=== PATIENT | male | born 1955 | race Hispanic/Latino ===

== ENCOUNTER 2017-10-18 15:09 | Emergency (ER) | payer MEDICARE ==
--- NOTE | 2017-10-18 18:32 | Emergency Department Report ---
ED General Adult HPI - General Chief complaint: Weakness Stated complaint: NOT EATING Time Seen by Provider: 10/18/17 17:29 Source: EMS Mode of arrival: Stretcher Limitations: Altered Mental Status, Other - History of Present Illness Initial comments: Patient apparently was brought from [facility]. Patient apparently over the last few days has not been eating. Prior to that about 6 days ago the patient was on a 1013 due to no hallucinations, paranoia and depressions. The patient was found at home after he missed doctor's appointment and was noticed to be confused and as such transported to the hospital. The personal aide worker with the patient said that the patient did not have anything to eat this morning. She hasn't seen him verbalize. On reviewing the progress notes the patient was alert and oriented this morning however refused to take his medications and refused to eat. Patient however is not able to verbalize to me and he refuses to talk however he does appear to move all his extremities at his own will -: Gradual Severity scale (0 -10): 0 - Related Data Allergies Allergy/AdvReac Type Severity Reaction Status Date / Time No Known Allergies Allergy Unverified 10/18/17 19:18 ED Review of Systems ROS: Stated complaint: NOT EATING Other details as noted in HPI Comment: Unobtainable due to pts medical conditions ED Past Medical Hx - Past Medical History Hx Hypertension: Yes Hx Diabetes: Yes Hx GERD: Yes Hx Psychiatric Treatment: Yes (history of major depressive disorder) Additional medical history: Psychosis unspecified. - Social History Smoking Status: Unknown if ever smoked ED Physical Exam - General Limitations: Altered Mental Status, Other General appearance: other (eyes closed and refuses to verbalize however moving ALL the extremities.) - Head Head exam: Present: atraumatic, normocephalic - Eye Eye exam: Present: normal appearance - ENT ENT exam: Present: mucous membranes moist - Neck Neck exam: Present: normal inspection - Respiratory Respiratory exam: Present: normal lung sounds bilaterally. Absent: respiratory distress - Cardiovascular Cardiovascular Exam: Present: regular rate, normal rhythm. Absent: systolic murmur, diastolic murmur, rubs, gallop - GI/Abdominal GI/Abdominal exam: Present: soft, normal bowel sounds - Rectal Rectal exam: Present: deferred - Extremities Exam Extremities exam: Present: normal inspection - Back Exam Back exam: Present: normal inspection - Neurological Exam Neurological exam: Absent: alert, oriented X3 - Psychiatric Psychiatric exam: Present: other (nonverbal. MUTED) - Skin Skin exam: Present: dry, other (skin the skin in the feet. WITH AN hyperkeratotic ulcer on the dorsal aspect of the second toe) ED Course Vital Signs 10/18/17 10/18/17 10/18/17 17:45 18:00 19:30 Temperature 97.7 F 98.3 F Pulse Rate 57 L 57 L Respiratory 18 18 Rate Blood Pressure Blood Pressure 115/54 129/73 [Left] O2 Sat by Pulse 96 96 96 Oximetry 10/18/17 10/18/17 10/18/17 20:00 21:00 22:00 Temperature Pulse Rate Respiratory Rate Blood Pressure 115/64 140/98 126/77 Blood Pressure [Left] O2 Sat by Pulse 94 Oximetry ED Medical Decision Making - Lab Data Result diagrams: 10/18/17 18:25 10/18/17 18:25 - Medical Decision Making Patient was later able to talk to me however he was not oriented 3 and appears to be psychotic at this time. i feel the patient's symptomatology is most likely secondary to his mental illness and him being out of his medications. Patient is also drinking and I feel he does things only as needed. From a medical standpoint I don't see where the patient needs to be admitted at this time as such I will be transferring him back to his behavioral facility. Critical care attestation.: If time is entered above; I have spent that time in minutes in the direct care of this critically ill patient, excluding procedure time. ED Disposition Clinical Impression: Dehydration, Psychosis, Leg wound, right, Medical clearance for psychiatric admission Disposition: -01 TO HOME OR SELFCARE Is pt being admited?: No Does the pt Need Aspirin: No Condition: Stable Instructions: Dehydration (ED) Additional Instructions: Increase oral fluid intake. Follow up as an outpatient with [facility] for further care of your feet Referrals: VITA CÁRDENAS MD [Primary Care Provider] - 3-5 Days JOEL HEAD MD [Staff Physician] - 2-3 Days Time of Disposition: 23:18 Print Language: ROMANSH
[2017-10-18 18:48] LABS: Basophils # (Auto) 0.1 K/mm3 (0.0-0.1); Basophils % (Auto) 1.1 % (0.0-1.8); Eosinophils # (Auto) 0.3 K/mm3 (0.0-0.4); Eosinophils % (Auto) 4.2 % (0.0-4.3); Hematocrit 55.5 % (35.5-45.6); Hemoglobin 18.1 gm/dl (11.8-15.2); Lymphocytes # (Auto) 1.9 K/mm3 (1.2-5.4); Lymphocytes % (Auto) 26.4 % (13.4-35.0); Mean Corpuscular HGB Conc 33 % (32-34); Mean Corpuscular Hemoglobin 27 pg (28-32); Mean Corpuscular Volume 84 fl (84-94); Monocytes # (Auto) 0.5 K/mm3 (0.0-0.8); Monocytes % (Auto) 7.2 % (0.0-7.3); Platelet Count 180 K/mm3 (140-440); Red Blood Count 6.61 M/mm3 (3.65-5.03); Red Cell Distribution Width 16.8 % (13.2-15.2)
[2017-10-18 19:19] LABS: Alanine Aminotransferase 29 units/L (7-56); BUN/Creatinine Ratio 26; Blood Urea Nitrogen 21 mg/dL (9-20); Calcium 9.1 mg/dL (8.4-10.2); Hemolysis Index 13
--- NOTE | 2017-10-18 19:57 | Cat Scan Report ---
FINAL REPORT PROCEDURE: CT HEAD/BRAIN WO CON TECHNIQUE: Computerized tomography of the head was performed without contrast material. HISTORY: altered mental status COMPARISON: No prior studies are available for comparison. FINDINGS: Brain: There is no evidence of intracranial hemorrhage. No parenchymal hemorrhage is seen. No mass lesions or mass effect is identified. No abnormal extra-axial fluid collections or masses are seen. Ventricles: The ventricles, sulcal pattern and fissures are prominent consistent with atrophy. Bones: There is a defect visualized in the right parietal bone superior posterior lateral seen on images 59 through image 64 axial image series 3. correlation with prior surgical history recommended. This could represent a surgical defect from previous craniotomy without replacement of the bone flap. I cannot exclude a lytic lesion. There does appear to be some mild calcification of the dura in this location. Paranasal sinuses: Visualized portions appear clear. Mastoid air cells: clear IMPRESSION: No acute intracranial abnormalities are identified. There does appear to be mild atrophy. There is a defect visualized in the right parietal bone superiorly posterior lateral as described above. I am uncertain if this represents a postsurgical defect or lytic defect. Correlation with prior surgical history and trauma history recommended. No other abnormalities are identified.
[2017-10-18 22:50] VITALS: BP 126/77
[2017-10-18 23:05] LABS: Bilirubin,Urine NEG (Negative); Blood,Urine SM (Negative); Color,Urine Yellow (Yellow); Hyaline Casts,Urine 1 /LPF; Mucus,Urine FEW /HPF; Nitrite,Urine NEG (Negative); Protein,Urine <15 mg/dL mg/dL (Negative)
== END 2017-10-19 04:41 | disposition home or self-care (01) ==
LOC: ED 15:09
DX: S81.801A Unspecified open wound, right lower leg, initial encounter (principal); I10 Essential (primary) hypertension; E11.9 Type 2 diabetes mellitus without complications; K21.9 Gastro-esophageal reflux disease without esophagitis; F32.9 Major depressive disorder, single episode, unspecified; X58.XXXA Exposure to other specified factors, initial encounter; Y93.89 Activity, other specified; Y92.89 Other specified places as the place of occurrence of the external cause; Y99.8 Other external cause status
CPT/HCPCS: 36415; 70450; 80053; 81001; 85025; 99285

== ENCOUNTER 2017-10-27 11:05 | Emergency (ER) | payer MEDICARE ==
[2017-10-27 11:24] VITALS: BP 95/59
[2017-10-27 12:22] LABS: Basophils % (Auto) 0.5 % (0.0-1.8); Eosinophils # (Auto) 0.2 K/mm3 (0.0-0.4); Eosinophils % (Auto) 2.1 % (0.0-4.3); Hemoglobin 17.1 gm/dl (11.8-15.2); Lymphocytes % (Auto) 11.9 % (13.4-35.0); Mean Corpuscular HGB Conc 33 % (32-34); Mean Corpuscular Hemoglobin 28 pg (28-32); Mean Corpuscular Volume 83 fl (84-94); Monocytes # (Auto) 0.5 K/mm3 (0.0-0.8); Monocytes % (Auto) 5.7 % (0.0-7.3); Platelet Count 144 K/mm3 (140-440); Red Blood Count 6.23 M/mm3 (3.65-5.03); Red Cell Distribution Width 16.3 % (13.2-15.2)
[2017-10-27 12:44] LABS: BUN/Creatinine Ratio 22; Blood Urea Nitrogen 13 mg/dL (9-20); Hemolysis Index 23
--- NOTE | 2017-10-27 14:29 | Emergency Department Report ---
ED Psych HPI - General Chief Complaint: Psych Stated Complaint: NOT EATING 4+ DAYS Time Seen by Provider: 10/27/17 11:57 Source: EMS, old records reviewed Mode of arrival: Stretcher - History of Present Illness Initial Comments: Patient is a 62-year-old male past medical history of psychosis. History is limited due to patient not being communicative. Patient is from [facility] and has not been eating for the last 4 days. According to mental health worker at this is patient's baseline. Patient has not been taking medications or food at his facility. Further history is unable to obtain due to patient not communicating. - Related Data Allergies Allergy/AdvReac Type Severity Reaction Status Date / Time No Known Allergies Allergy Unverified 10/18/17 19:18 ED Review of Systems ROS: Stated complaint: NOT EATING 4+ DAYS Other details as noted in HPI Comment: Unobtainable due to pts medical conditions (pt not communicating) ED Past Medical Hx - Past Medical History Previous Medical History?: Yes Hx Hypertension: Yes Hx Diabetes: Yes Hx GERD: Yes Hx Psychiatric Treatment: Yes (history of major depressive disorder) Additional medical history: Psychosis unspecified. - Social History Smoking Status: Unknown if ever smoked ED Physical Exam - General Limitations: Altered Mental Status General appearance: alert - Head Head exam: Present: atraumatic, normocephalic - Eye Eye exam: Present: normal appearance - ENT ENT exam: Present: mucous membranes moist - Neck Neck exam: Present: normal inspection - Respiratory Respiratory exam: Present: normal lung sounds bilaterally. Absent: respiratory distress - Cardiovascular Cardiovascular Exam: Present: regular rate, normal rhythm. Absent: systolic murmur, diastolic murmur, rubs, gallop - GI/Abdominal GI/Abdominal exam: Present: soft, normal bowel sounds - Rectal Rectal exam: Present: deferred - Extremities Exam Extremities exam: Present: other (mccoy discoloration no edema or swelling ) - Back Exam Back exam: Present: normal inspection - Neurological Exam Neurological exam: Present: other (psychotic ) - Psychiatric Psychiatric exam: Present: other (psychotic ) - Skin Skin exam: Present: warm, dry, intact, normal color. Absent: rash ED Course Vital Signs 10/27/17 10/27/17 11:21 13:24 Pulse Rate 71 Respiratory 18 16 Rate Blood Pressure 95/59 O2 Sat by Pulse 92 96 Oximetry ED Medical Decision Making - Lab Data Result diagrams: 10/27/17 12:03 10/27/17 12:05 Lab Results 10/27/17 10/27/17 10/27/17 Range/Units 12:03 12:05 12:05 WBC 8.2 (4.5-11.0) K/mm3 RBC 6.23 H (3.65-5.03) M/mm3 Hgb 17.1 H (11.8-15.2) gm/dl Hct 52.0 H (35.5-45.6) % MCV 83 L (84-94) fl MCH 28 (28-32) pg MCHC 33 (32-34) % RDW 16.3 H (13.2-15.2) % Plt Count 144 (140-440) K/mm3 Lymph % (Auto) 11.9 L (13.4-35.0) % [place] % (Auto) 5.7 (0.0-7.3) % Eos % (Auto) 2.1 (0.0-4.3) % Baso % (Auto) 0.5 (0.0-1.8) % Lymph # 1.0 L (1.2-5.4) K/mm3 Hardy # 0.5 (0.0-0.8) K/mm3 Eos # 0.2 (0.0-0.4) K/mm3 Baso # 0.0 (0.0-0.1) K/mm3 Seg Neutrophils % 79.8 H (40.0-70.0) % Seg Neutrophils # 6.6 (1.8-7.7) K/mm3 Sodium (137-145) mmol/L Potassium (3.6-5.0) mmol/L Chloride (98-107) mmol/L Carbon Dioxide (22-30) mmol/L Anion Gap mmol/L BUN (9-20) mg/dL Creatinine (0.8-1.5) mg/dL Estimated GFR ml/min BUN/Creatinine Ratio % Glucose (75-100) mg/dL Calcium (8.4-10.2) mg/dL Salicylates < 0.3 L (2.8-20.0) mg/dL Acetaminophen < 15.0 (10.0-30.0) ug/mL Plasma/Serum Alcohol (0-0.07) % 10/27/17 10/27/17 Range/Units 12:05 12:05 WBC (4.5-11.0) K/mm3 RBC (3.65-5.03) M/mm3 Hgb (11.8-15.2) gm/dl Hct (35.5-45.6) % MCV (84-94) fl MCH (28-32) pg MCHC (32-34) % RDW (13.2-15.2) % Plt Count (140-440) K/mm3 Lymph % (Auto) (13.4-35.0) % Hardy % (Auto) (0.0-7.3) % Eos % (Auto) (0.0-4.3) % Baso % (Auto) (0.0-1.8) % Lymph # (1.2-5.4) K/mm3 Hardy # (0.0-0.8) K/mm3 Eos # (0.0-0.4) K/mm3 Baso # (0.0-0.1) K/mm3 Seg Neutrophils % (40.0-70.0) % Seg Neutrophils # (1.8-7.7) K/mm3 Sodium 140 (137-145) mmol/L Potassium 4.0 (3.6-5.0) mmol/L Chloride 99.2 (98-107) mmol/L Carbon Dioxide 26 (22-30) mmol/L Anion Gap 19 mmol/L BUN 13 (9-20) mg/dL Creatinine 0.6 L (0.8-1.5) mg/dL Estimated GFR > 60 ml/min BUN/Creatinine Ratio 22 % Glucose 121 H (75-100) mg/dL Calcium 9.0 (8.4-10.2) mg/dL Salicylates (2.8-20.0) mg/dL Acetaminophen (10.0-30.0) ug/mL Plasma/Serum Alcohol < 0.01 (0-0.07) % - Medical Decision Making Cdx: Psychosis ddx: dehydration, hypophosphatemia I will get cbc, bmp, psych labs and will have patient be seen by mental health worker for further workup. Pt's lab work is unremarkable Critical care attestation.: If time is entered above; I have spent that time in minutes in the direct care of this critically ill patient, excluding procedure time. ED Disposition Clinical Impression: Psychosis Qualifiers: Psychosis type: schizophrenia Schizophrenia type: unspecified Qualified Code(s) : F20.9 - Schizophrenia, unspecified Disposition: DC/TX-65 PSY HOSP/PSY UNIT Is pt being admited?: No Does the pt Need Aspirin: No Condition: Stable Referrals: PRIMARY CARE, [Primary Care Provider] - 3-5 Days
== END 2017-10-27 18:35 ==
LOC: ED 11:05
DX: F32.9 Major depressive disorder, single episode, unspecified (principal); I10 Essential (primary) hypertension; E11.9 Type 2 diabetes mellitus without complications; K21.9 Gastro-esophageal reflux disease without esophagitis
CPT/HCPCS: 36415; 80048; 85025; 99284; G0480; 80320

== ENCOUNTER 2019-04-14 07:39 | Inpatient (IN) | payer MEDICARE, OTHER ==
[2019-04-14] MEDS ORDERED: NACL 0.9% 1000 ML IV ONE (08:08)
[2019-04-14] MEDS ORDERED: ROCEPHIN/NS 1 GM/50 ML 1 GM/50 ML BAG IV ONE (08:17)
--- NOTE | 2019-04-14 08:24 | Emergency Department Report ---
HPI - General Chief Complaint: Dyspnea/Respdistress Time Seen by Provider: 04/14/19 08:08 - HPI HPI: Room 26 The patient is a 64-year-old male presenting with a chief complaint of cough. The patient was reportedly sent from [facility] altered mental status however.The patient was found in all 4. Patient was found to be hypoxic to 92% on room air and states he is not on the patient states she has had a cough for approximately a week and nonproductive. Patient denies history of fever. In the ED the patient is on supplemental O2 and satting approximately 95% when asked how he is feeling, the patient replies "pretty good." Location: [See above] Duration: [See above] Quality: [See above] Severity: [See above] Modifying factors: [see above] Context: [see above] Mode of transportation: [not driving] ED Past Medical Hx - Past Medical History Previous Medical History?: Yes Hx Hypertension: Yes Hx Heart Attack/AMI: Yes Hx Diabetes: Yes Hx GERD: Yes Hx Kidney Stones: Yes Hx Psychiatric Treatment: Yes (history of major depressive disorder, PTSD, schizoaffective d.o.) Additional medical history: Psychosis unspecified, PVD, anemia - Surgical History Past Surgical History?: Yes Additional Surgical History: Hemorrhoids sx - Family History Family history: no significant - Social History Smoking Status: Never Smoker Substance Use Type: None ED Review of Systems ROS: Stated complaint: AMS Other details as noted in HPI Constitutional: denies: fever Eyes: denies: eye pain ENT: denies: throat pain Respiratory: cough, shortness of breath Cardiovascular: denies: chest pain Endocrine: no symptoms reported Gastrointestinal: denies: abdominal pain Genitourinary: denies: dysuria Musculoskeletal: denies: back pain Neurological: denies: headache Physical Exam - Physical Exam Vital Signs: Vital Signs 04/14/19 04/14/19 04/14/19 07:48 07:55 08:00 Temperature 97.6 F Pulse Rate 78 81 75 Respiratory 10 L 19 Rate Blood Pressure 80/52 84/56 O2 Sat by Pulse 93 92 Oximetry Physical Exam: GENERAL: The patient is well-developed well-nourished male lying on stretcher not appearing to be in acute distress. [] HEENT: Normocephalic. Atraumatic. Extraocular motions are intact. Patient has moist mucous membranes. NECK: Supple. Trachea midline CHEST/LUNGS: Clear to auscultation. There is no respiratory distress noted. HEART/CARDIOVASCULAR: Regular. There is no tachycardia. There is no gallop rub or murmur. ABDOMEN: Abdomen is soft, nontender. Patient has normal bowel sounds. There is no abdominal distention. SKIN: There is no rash. There is no diaphoresis. NEURO: The patient is awake, alert, and oriented. The patient is cooperative. The patient has normal speech MUSCULOSKELETAL: There is no evidence of acute injury. ED Course Vital Signs 04/14/19 04/14/19 04/14/19 07:48 07:55 08:00 Temperature 97.6 F Pulse Rate 78 81 75 Respiratory 10 L 19 Rate Blood Pressure 80/52 84/56 O2 Sat by Pulse 93 92 Oximetry ED Medical Decision Making - Lab Data Result diagrams: 04/14/19 08:07 04/14/19 08:07 Laboratory Tests 04/14/19 04/14/19 04/14/19 08:07 08:07 08:07 WBC 8.0 RBC 3.72 Hgb 10.6 L Hct 32.5 L MCV 87 MCH 29 MCHC 33 RDW 15.9 H Plt Count 350 Lymph % (Auto) 9.4 L [place] % (Auto) 6.3 Eos % (Auto) 0.2 Baso % (Auto) 0.5 Lymph # 0.8 L [place] # 0.5 Eos # 0.0 Baso # 0.0 Seg Neutrophils % 83.6 H Seg Neutrophils # 6.7 Sodium 149 H Potassium 4.4 Chloride 113.8 H Carbon Dioxide 23 Anion Gap 17 BUN 55 H Creatinine 1.8 H Estimated GFR 38 BUN/Creatinine Ratio 31 Glucose 152 H Lactic Acid 1.70 Calcium 9.3 Total Bilirubin 0.20 AST 57 H ALT 33 Alkaline Phosphatase 72 Total Protein 6.6 Albumin 3.4 L Albumin/Globulin Ratio 1.1 Urine Color Urine Turbidity Urine pH Ur Specific [place] Urine Protein Urine Glucose (UA) Urine Ketones Urine Blood Urine Nitrite Urine Bilirubin Urine Urobilinogen Ur Leukocyte Esterase Urine WBC (Auto) Urine RBC (Auto) Uric Acid Crystals 04/14/19 Unknown WBC RBC Hgb Hct MCV MCH MCHC RDW Plt Count Lymph % (Auto) [place] % (Auto) Eos % (Auto) Baso % (Auto) Lymph # [place] # Eos # Baso # Seg Neutrophils % Seg Neutrophils # Sodium Potassium Chloride Carbon Dioxide Anion Gap BUN Creatinine Estimated GFR BUN/Creatinine Ratio Glucose Lactic Acid Calcium Total Bilirubin AST ALT Alkaline Phosphatase Total Protein Albumin Albumin/Globulin Ratio Urine Color Yellow Urine Turbidity Hazy Urine pH 5.0 Ur Specific [place] 1.016 Urine Protein <15 mg/dl Urine Glucose (UA) 50 Urine Ketones Neg Urine Blood Neg Urine Nitrite Neg Urine Bilirubin Neg Urine Urobilinogen < 2.0 Ur Leukocyte Esterase Neg Urine WBC (Auto) 3.0 Urine RBC (Auto) 9.0 Uric Acid Crystals 1+ - Radiology Data Radiology results: report reviewed (chest x-ray), image reviewed (chest x-ray) interpreted by me: Chest [id number] infiltrate, cardiomegaly, possible left pleural effusion [facility] [address] [place] [address] XRay Report Signed Patient: NÉSTOR OROZCO MR#: [id number] : 1955 Acct:[id number] Age/Sex: 64 / M ADM Date: 04/14/19 Loc: ED Attending Dr: Ordering Physician: UNIQUE LATIF MD Date of Service: 04/14/19 Procedure(s): XR chest 1V ap Accession Number(s): [id number] cc: UNIQUE LATIF MD Fluoro Time In Minutes: CHEST 1 VIEW INDICATION: cough, hypotension. COMPARISON: None FINDINGS: SUPPORT DEVICES: None. HEART / MEDIASTINUM: No significant abnormality. LUNGS / PLEURA: Diffuse increased interstitium is present. Volume loss left lung is a concern Possible left pleural effusion.. No pneumothorax. ADDITIONAL FINDINGS: IMPRESSION: 1. Diffuse interstitial pulmonary process with possible volume loss left lung and left pleural effusion Signer Name: Khari Em MD Signed: 04/14/2019 8:44 AM Workstation Name: [id number] Transcribed By: WG Dictated By: Khari Em MD Electronically Authenticated By: Khari Em MD Signed Date/Time: 04/14/19843 DD/ 2 TD/TT: - Differential Diagnosis pneumonia, sepsis, bronchitis Critical care attestation.: If time is entered above; I have spent that time in minutes in the direct care of this critically ill patient, excluding procedure time. ED Disposition Clinical Impression: Pneumonia, Pleural effusion, Hypoxia Disposition: DC-09 OP ADMIT IP TO THIS HOSP Is pt being admited?: Yes Does the pt Need Aspirin: Yes Condition: Fair Instructions: Bacterial Pneumonia (ED) Referrals: LEONILA MICHAEL MD [Primary Care Provider] - 3-5 Days Time of Disposition: 10:02 (hospitalist paged)
[2019-04-14 08:29] LABS: Basophils % (Auto) 0.5 % (0.0-1.8); Eosinophils % (Auto) 0.2 % (0.0-4.3); Hematocrit 32.5 % (35.5-45.6); Hemoglobin 10.6 gm/dl (11.8-15.2); Lymphocytes # (Auto) 0.8 K/mm3 (1.2-5.4); Lymphocytes % (Auto) 9.4 % (13.4-35.0); Mean Corpuscular HGB Conc 33 % (32-34); Mean Corpuscular Volume 87 fl (84-94); Monocytes # (Auto) 0.5 K/mm3 (0.0-0.8); Monocytes % (Auto) 6.3 % (0.0-7.3); Platelet Count 350 K/mm3 (140-440); Red Blood Count 3.72 M/mm3 (3.65-5.03); Red Cell Distribution Width 15.9 % (13.2-15.2)
[2019-04-14 08:49] LABS: Albumin 3.4 g/dL (3.9-5); Calcium 9.3 mg/dL (8.4-10.2)
--- NOTE | 2019-04-14 08:49 | XRay Report ---
CHEST 1 VIEW INDICATION: cough, hypotension. COMPARISON: None FINDINGS: SUPPORT DEVICES: None. HEART / MEDIASTINUM: No significant abnormality. LUNGS / PLEURA: Diffuse increased interstitium is present. Volume loss left lung is a concern Possibl e left pleural effusion.. No pneumothorax. ADDITIONAL FINDINGS: IMPRESSION: 1. Diffuse interstitial pulmonary process with possible volume loss left lung and left pleural effusi on Signer Name: Khari Em MD Signed: 04/14/2019 8:44 AM Workstation Name: [id number]
[2019-04-14] MEDS ORDERED: ZITHROMAX 500 MG in NACL 0.9% 250ML 250 ML IV ONE (09:30)
[2019-04-14 09:38] LABS: Bilirubin,Urine NEG (Negative); Blood,Urine NEG (Negative); Color,Urine Yellow (Yellow); Protein,Urine <15 mg/dL mg/dL (Negative); Urobilinogen,Urine < 2.0 mg/dL (<2.0)
--- NOTE | 2019-04-14 10:27 | History and Physical Report ---
History of Present Illness Date of examination: 04/14/19 Date of admission: 04/14/19 Chief complaint: Cough History of present illness: The patient is a 64-year-old male with h/o HTN, HLD, DM type 2 presented with a chief complaint of cough. The patient was reportedly sent from [facility] with c/o altered mental status however the patient was found Alert and oriented in the ER. Patient was found to be hypoxic to 92% on room air, CXR showed left sided moderate pleural effusion, hypotensive. The patient states she has had a cough for approximately a week and nonproductive. Patient denies history of fever. In the ED the patient was placed on supplemental O2 and saturation improved to approximately 95%. Given 3L of NS bolus and called for admission. patient denies any chest pain or SOB. Past Medical Hx - Past Medical History Previous Medical History?: Yes Hx Hypertension: Yes Hx Diabetes: Yes Hx GERD: Yes Hx Kidney Stones: Yes Hx Psychiatric Treatment: Yes (history of major depressive disorder, PTSD, schizoaffective d.o.) Additional medical history: Psychosis unspecified, PVD, anemia - Surgical History Past Surgical History?: Yes Additional Surgical History: Hemorrhoids sx - Family History Family history: no significant - Social History Smoking Status: Never Smoker Substance Use Type: None Review of System: Constitutional: no fever, no chills, no weight loss Ears, eyes, nose, mouth and throat: no nasal congestion, no nasal discharge, no sinus pressure, no vision change, no red eye. Neck: No neck pain or rigidity. Cardiovascular: No chest pain, no orthopnea, no palpitations, no leg swelling Respiratory: No shortness of breath, + cough, no congestion, no wheezing Gastrointestinal: no abdominal pain, no nausea, no vomiting Genitourinary : no dysuria, no hematuria Musculoskeletal: no joint swelling or muscle ache Integumentary: no rash, no pruritis Neurological: no parathesias, no numbness, no tingling Endocrine: no cold or heat intolerance, no polyuria or polydipsia Hematologic/Lymphatic: no easy bruising, no easy bleeding, no gland swelling Allergic/Immunologic: no urticaria, no angioedema. Medications and Allergies Allergies Allergy/AdvReac Type Severity Reaction Status Date / Time No Known Allergies Allergy Verified 10/11/18 14:24 Home Medications Medication Instructions Recorded Confirmed Last Taken Type Aspirin [Aspirin BABY CHEW TAB] 81 mg PO QDAY 04/14/19 04/14/19 Unknown History AtorvaSTATin [Lipitor] 40 mg PO QHS 04/14/19 04/14/19 Unknown History Benztropine Mesylate 1 mg PO BID 04/14/19 04/14/19 Unknown History Docusate Sodium [Colace] 100 mg PO BID PRN 04/14/19 04/14/19 Unknown History Ergocalciferol [Vitamin D2] 1 cap PO QWEEK 04/14/19 04/14/19 Unknown History Ferrous Sulfate [Iron 325 MG] 325 mg PO TID 04/14/19 04/14/19 Unknown History Ketoconazole 2% [Nizoral] 1 applicatio TP QDAY 04/14/19 04/14/19 Unknown History Ketoconazole [Ketoconazole shampoo] 120 ml TP QDAY 04/14/19 04/14/19 Unknown History Lisinopril [Zestril TAB] 40 mg PO QDAY 04/14/19 04/14/19 Unknown History Lurasidone HCl [Latuda] 40 mg PO QHS 04/14/19 04/14/19 Unknown History Nystatin Cream [Mycostatin Cream] 1 applic TP BID 04/14/19 04/14/19 Unknown History Pantoprazole [Protonix] 40 mg PO QDAY 04/14/19 04/14/19 Unknown History Sennosides Tab [Senokot] 17.2 mg PO QHS 04/14/19 04/14/19 Unknown History Tamsulosin [Flomax] 0.4 mg PO QHS 04/14/19 04/14/19 Unknown History Ziprasidone [Geodon] 60 mg PO BID 04/14/19 04/14/19 Unknown History Active Meds: Active Medications Azithromycin 500 mg/ Sodium (Chloride) 250 mls @ 250 mls/hr IV ONCE ONE; Protocol Stop: 04/14/19 10:29 Last Admin: 04/14/19 09:35 Dose: 250 mls/hr Documented by: Exam - Physical Exam Narrative exam: GENERAL: well-developed and well-nourished white male lying on bed appeared to be in no discomfort. HEENT: Normocephalic. Atraumatic. No conjunctival congestion or icterus. Patient has moist mucous membranes. NECK: Supple. Trachea midline. CHEST/LUNGS: Reduced breath sound auscultated bilaterally, breathing nonlabored. No wheezes crackles or rhonchi. HEART/CARDIOVASCULAR: Regular in rate and rhythm. S1 and S2 positive. ABDOMEN: Abdomen is soft, nontender. Patient has normal bowel sounds. SKIN: There is no rash. Warm and dry. NEURO: No focal motor deficit. Follows command. MUSCULOSKELETAL: No joint effusion or tenderness. EXTRIMITY: No edema, no cyanosis or clubbing. PSYCH: Cooperative. - Constitutional Vitals: Temp Pulse Resp BP Pulse Ox 97.6 F 62 18 110/72 98 04/14/19 07:55 04/14/19 10:00 04/14/19 10:00 04/14/19 10:00 04/14/19 10:00 Results - Labs CBC & Chem 7: 04/15/19 05:02 04/16/19 04:54 Labs: Abnormal lab results 04/14/19 04/14/19 Range/Units 08:07 08:07 Hgb 10.6 L (11.8-15.2) gm/dl Hct 32.5 L (35.5-45.6) % RDW 15.9 H (13.2-15.2) % Lymph % (Auto) 9.4 L (13.4-35.0) % Lymph # 0.8 L (1.2-5.4) K/mm3 Seg Neutrophils % 83.6 H (40.0-70.0) % Sodium 149 H (137-145) mmol/L Chloride 113.8 H (98-107) mmol/L BUN 55 H (9-20) mg/dL Creatinine 1.8 H (0.8-1.5) mg/dL Glucose 152 H (75-100) mg/dL AST 57 H (5-40) units/L Albumin 3.4 L (3.9-5) g/dL Assessment and Plan LLL PNA Left Pleural effusion hypernatremia, likely from dehydration TOMASZ, vasomotor nephropathy Hypotension, from hypovolumia Schizoaffective disorder HTN h/o, now hypotensive DM type 2 - admit to remote tele - monitor BP, cont iv fluid - hold home BP meds, SSI for BG Mx qACHS - cont home psych meds, repeat CXR in the am, plan for thoracentesis - place on iv abx, scheduled nebs - Monitor renal function, DVT Px with heparin
[2019-04-14] MEDS ORDERED: APRESOLINE IV PRN (10:28)
[2019-04-14] MEDS ORDERED: TYLENOL PO PRN (10:28)
[2019-04-14] MEDS ORDERED: ZOFRAN IV PRN (10:28)
[2019-04-14] MEDS ORDERED: NORCO 5/325 PO PRN (10:28)
[2019-04-14] MEDS ORDERED: NACL 0.45% 1000 ML 1,000 ML IV SCH (11:00)
[2019-04-14] MEDS ORDERED: NACL 0.9% 1000 ML 1,000 ML IV SCH (11:00)
[2019-04-14] MEDS ORDERED: MUCINEX ER PO ONE ×2 (12:00→15:00)
[2019-04-14] MEDS ORDERED: NACL 0.9% 500 ML 500 ML IV ONE (14:06)
[2019-04-14] MEDS: DUONEB *Not for PRN Use IH SCH ×2 (14:06→21:35)
[2019-04-14] MEDS: HumuLIN R SUB-Q SCH ×3 (14:12→23:28)
[2019-04-14] MEDS ORDERED: ROBITUSSIN PO PRN (17:46)
[2019-04-14] MEDS: SENOKOT PO SCH (21:15)
[2019-04-14] MEDS: COLACE PO SCH (21:15)
[2019-04-14] MEDS: PEPCID PO SCH (21:15)
[2019-04-14] MEDS: HEPARIN SUB-Q SCH (21:16)
[2019-04-14] MEDS: ROCEPHIN/NS 1 GM/50 ML 1 GM/50 ML BAG IV SCH (21:22)
[2019-04-15 05:57] LABS: Basophils # (Auto) 0.1 K/mm3 (0.0-0.1); Basophils % (Auto) 1.1 % (0.0-1.8); Eosinophils # (Auto) 0.1 K/mm3 (0.0-0.4); Hematocrit 30.5 % (35.5-45.6); Hemoglobin 10.1 gm/dl (11.8-15.2); Lymphocytes # (Auto) 1.4 K/mm3 (1.2-5.4); Lymphocytes % (Auto) 24.1 % (13.4-35.0); Mean Corpuscular HGB Conc 33 % (32-34); Mean Corpuscular Volume 87 fl (84-94); Monocytes # (Auto) 0.3 K/mm3 (0.0-0.8); Monocytes % (Auto) 5.8 % (0.0-7.3); Platelet Count 252 K/mm3 (140-440); Red Blood Count 3.49 M/mm3 (3.65-5.03)
[2019-04-15 06:23] LABS: BUN/Creatinine Ratio 35; Blood Urea Nitrogen 28 mg/dL (9-20); Calcium 8.4 mg/dL (8.4-10.2); Hemolysis Index 14
[2019-04-15] MEDS: DUONEB *Not for PRN Use IH SCH ×3 (07:17→20:53)
[2019-04-15] MEDS: COLACE PO SCH ×2 (09:50→23:02)
[2019-04-15] MEDS: PEPCID PO SCH ×2 (09:50→23:57)
[2019-04-15] MEDS: HEPARIN SUB-Q SCH ×2 (09:51→23:02)
[2019-04-15] MEDS: HumuLIN R SUB-Q SCH ×4 (09:59→23:51)
[2019-04-15] MEDS: ROCEPHIN/NS 1 GM/50 ML 1 GM/50 ML BAG IV SCH ×2 (10:00→23:01)
[2019-04-15] MEDS: SENOKOT PO SCH ×2 (10:18→23:02)
--- NOTE | 2019-04-15 10:23 | XRay Report ---
CHEST 1 VIEW, 04/15/2019 9:48 AM INDICATION: History of pleural effusion COMPARISON: Chest radiograph, 04/14/2019 at 8:23 AM FINDINGS: Support devices: None Heart: The cardiac silhouette remains normal in size. Lungs/pleura: Opacity over the left lung field has now resolved. The pulmonary interstitium appears m ildly prominent, but there is no evidence of focal airspace consolidation or large pleural effusion. Additional findings: No additional acute findings. IMPRESSION: 1. Interval resolution of left lung field opacity which may represent a resolved pleural effusion. 2. Mildly prominent pulmonary interstitium suggestive of mild pulmonary edema. Signer Name: Kathe Livingston MD Signed: 04/15/2019 10:18 AM Workstation Name: [id number]
--- NOTE | 2019-04-15 15:39 | Progress Note ---
Assessment and Plan Sinus bradycardia LLL PNA Left Pleural effusion, resolved hypernatremia, likely from dehydration TOMASZ, vasomotor nephropathy Hypotension, from hypovolumia Schizoaffective disorder HTN h/o, now hypotensive DM type 2 - Transfer to telemetry, obtain EKG - monitor BP, cont iv fluid - hold home BP meds, SSI for BG Mx qACHS - cont home psych meds, repeat CXR showed resolved pleural effusion, canceled thoracentesis order -Continue on iv abx, scheduled nebs, follow 2-D echo results - Monitor renal function, DVT Px with heparin Subjective Date of service: 04/15/19 Interval history: Patient seen and examined. Medical records and medication list reviewed. No acute event overnight noted by the RN. Patient denies any chest pain or difficulty breathing. Patient is tolerating diet. Discussed plan of care at bedside with patient. Objective - Exam Narrative Exam: GENERAL: well-developed and well-nourished white male lying on bed appeared to be in no discomfort. HEENT: Normocephalic. Atraumatic. No conjunctival congestion or icterus. Patient has moist mucous membranes. NECK: Supple. Trachea midline. CHEST/LUNGS: + breath sound auscultated bilaterally, breathing nonlabored. No wheezes crackles or rhonchi. HEART/CARDIOVASCULAR: Regular in rate and rhythm. S1 and S2 positive. ABDOMEN: Abdomen is soft, nontender. Patient has normal bowel sounds. SKIN: There is no rash. Warm and dry. NEURO: No focal motor deficit. Follows command. MUSCULOSKELETAL: No joint effusion or tenderness. EXTRIMITY: No edema, no cyanosis or clubbing. PSYCH: Cooperative. - Constitutional Vitals: Vital Signs - 12hr 04/15/19 04/15/19 04/15/19 07:11 07:18 07:23 Temperature 97.6 F Pulse Rate 47 L Pulse Rate [ 72 Anterior] Respiratory 19 20 Rate Respiratory 18 Rate [Anterior] Blood Pressure 106/67 O2 Sat by Pulse 97 Oximetry 04/15/19 04/15/19 04/15/19 09:02 12:52 13:00 Temperature 98.3 F Pulse Rate 58 L Pulse Rate [ 52 L Anterior] Respiratory 20 Rate Respiratory 18 Rate [Anterior] Blood Pressure 107/68 O2 Sat by Pulse 95 99 Oximetry - Labs CBC & Chem 7: 04/15/19 05:02 04/16/19 04:54 Labs: Abnormal lab results 04/14/19 04/14/19 04/14/19 Range/Units 14:13 15:36 16:15 RBC (3.65-5.03) M/mm3 Hgb (11.8-15.2) gm/dl Hct (35.5-45.6) % RDW (13.2-15.2) % Sodium (137-145) mmol/L Chloride (98-107) mmol/L BUN (9-20) mg/dL POC Glucose 151 H 173 H (70-105) Lactic Acid 5.90 H* (0.7-2.0) mmol/L 04/15/19 04/15/19 04/15/19 Range/Units 05:02 05:02 13:04 RBC 3.49 L (3.65-5.03) M/mm3 Hgb 10.1 L (11.8-15.2) gm/dl Hct 30.5 L (35.5-45.6) % RDW 16.0 H (13.2-15.2) % Sodium 149 H (137-145) mmol/L Chloride 116.8 H (98-107) mmol/L BUN 28 H (9-20) mg/dL POC Glucose 143 H (70-105) Lactic Acid (0.7-2.0) mmol/L
[2019-04-15] MEDS ORDERED: NACL 0.45% 1000 ML 1,000 ML IV SCH (16:00)
[2019-04-15] MEDS: ZITHROMAX 500 MG in NACL 0.9% 250ML 250 ML IV SCH (18:00)
[2019-04-16 06:00] LABS: BUN/Creatinine Ratio 22; Blood Urea Nitrogen 13 mg/dL (9-20); Calcium 8.3 mg/dL (8.4-10.2); Hemolysis Index 7
[2019-04-16] MEDS: HumuLIN R SUB-Q SCH ×3 (07:30→16:46)
[2019-04-16] MEDS: DUONEB *Not for PRN Use IH SCH ×3 (07:51→20:44)
[2019-04-16] MEDS: HEPARIN SUB-Q SCH ×2 (10:06→23:32)
[2019-04-16] MEDS: FEOSOL PO SCH ×2 (10:06→15:08)
[2019-04-16] MEDS: PEPCID PO SCH ×2 (10:06→23:32)
[2019-04-16] MEDS: BABY ASPIRIN PO SCH (10:06)
[2019-04-16] MEDS: SENOKOT PO SCH ×2 (10:06→23:32)
[2019-04-16] MEDS: PROTONIX PO SCH (10:06)
[2019-04-16] MEDS: COLACE PO PRN (10:06)
[2019-04-16] MEDS: ROCEPHIN/NS 1 GM/50 ML 1 GM/50 ML BAG IV SCH ×2 (10:07→23:43)
--- NOTE | 2019-04-16 12:02 | Fluoroscopy Report ---
MODIFIED BARIUM SWALLOW INDICATION: Dysphagia, evaluate for aspiration TECHNIQUE: Swallowing was evaluated in the lateral position under direct fluoroscopy. FINDINGS: The patient was evaluated with thin liquids, puree, semisolid and solid foods.. There was perhaps trace penetration with thin liquids. No evidence for aspiration. Normal deglutition with puree and semisolids. Mild vallecular stasis was noted with solids which cleared with multiple swallows. IMPRESSION: No aspiration identified. Fluoroscopic time: 0.9 minutes Number of fluoroscopic images: 1 Signer Name: Gilbert Rachel Jr, MD Signed: 04/16/2019 11:58 AM Workstation Name: [id number]
--- NOTE | 2019-04-16 13:50 | Progress Note ---
Assessment and Plan Encephalopathy, POA Sinus bradycardia LLL PNA Left Pleural effusion, resolved hypernatremia, likely from dehydration TOMASZ, vasomotor nephropathy Hypotension, from hypovolumia Schizoaffective disorder HTN h/o, now hypotensive DM type 2 - monitor at telemetry, obtain EKG - monitor BP, cont iv fluid - hold home BP meds, SSI for BG Mx qACHS - cont home psych meds, repeat CXR showed resolved pleural effusion, canceled thoracentesis order -Continue on iv abx, scheduled nebs, preserved EF on 2-D echo - consult cardiology and paych - Monitor renal function, DVT Px with heparin Brief History: The patient is a 64-year-old male with h/o HTN, HLD, DM type 2 presented with a chief complaint of cough. The patient was reportedly sent from [facility] with c/o altered mental status however the patient was found Alert and oriented in the ER. Subjective Date of service: 04/16/19 Interval history: Patient seen and examined. Medical records and medication list reviewed. No acute event overnight noted by the RN. Patient denies any chest pain or difficulty breathing. Patient is tolerating diet. Becoming confused Discussed plan of care at bedside with patient. Objective - Exam Narrative Exam: GENERAL: well-developed and well-nourished white male lying on bed appeared to be in no discomfort. HEENT: Normocephalic. Atraumatic. No conjunctival congestion or icterus. Patient has moist mucous membranes. NECK: Supple. Trachea midline. CHEST/LUNGS: + breath sound auscultated bilaterally, breathing nonlabored. No wheezes crackles or rhonchi. HEART/CARDIOVASCULAR: Regular in rate and rhythm. S1 and S2 positive. ABDOMEN: Abdomen is soft, nontender. Patient has normal bowel sounds. SKIN: There is no rash. Warm and dry. NEURO: No focal motor deficit. Follows command. MUSCULOSKELETAL: No joint effusion or tenderness. EXTRIMITY: No edema, no cyanosis or clubbing. PSYCH: Cooperative. - Constitutional Vitals: Vital Signs - 12hr 04/16/19 04/16/19 04/16/19 04:00 07:51 08:09 Temperature 98.4 F 98.1 F Pulse Rate 50 L 54 L Pulse Rate [ Anterior Bilateral] Pulse Rate [ 52 L Anterior] Pulse Rate [ From Monitor] Respiratory 19 16 Rate Respiratory Rate [Anterior Bilateral] Respiratory 18 Rate [Anterior] Blood Pressure 131/65 124/59 O2 Sat by Pulse 98 98 99 Oximetry 04/16/19 04/16/19 04/16/19 10:00 12:25 13:29 Temperature 98.0 F Pulse Rate 51 L 50 L Pulse Rate [ 57 L Anterior Bilateral] Pulse Rate [ Anterior] Pulse Rate [ 54 L From Monitor] Respiratory 16 18 Rate Respiratory 18 Rate [Anterior Bilateral] Respiratory Rate [Anterior] Blood Pressure 122/70 O2 Sat by Pulse 99 96 Oximetry - Labs CBC & Chem 7: 04/15/19 05:02 04/16/19 04:54 Labs: Abnormal lab results 04/16/19 04/16/19 Range/Units 04:54 12:34 Chloride 109.5 H (98-107) mmol/L Creatinine 0.6 L (0.8-1.5) mg/dL POC Glucose 114 H (70-105) Calcium 8.3 L (8.4-10.2) mg/dL
--- NOTE | 2019-04-16 14:21 | Consultation ---
History of Present Illness Consult date: 04/16/19 Requesting physician: JOSE BAUTISTA Consult reason: bradycardia History of present illness: The patient is a 64-year-old male shelter resident with a past medical history of HTN, HLD, DM, ? schizophrenia. He presented with a c/o cough. He is a rather poor historian and does not provide any additional details. Per the chart, the patient was reportedly sent from [facility] with c/o altered mental status however the patient was found Alert and oriented in the ER. Pt subsequently diagnosed with PNA, left-sided pleural effusion, TOMASZ, dehydration. Pt also noted to have sinus bradycardia with HR low of 31bpm on telemetry and thus cardiology has been consulted. Pt denies any cardiac complaints. He reports a "heart murmur" as his only known cardiac history. Past History Past Medical History: diabetes, hypertension, hyperlipidemia, other (psych d/o) Medications and Allergies Allergies Allergy/AdvReac Type Severity Reaction Status Date / Time No Known Allergies Allergy Verified 10/11/18 14:24 Home Medications Medication Instructions Recorded Confirmed Last Taken Type Aspirin [Aspirin BABY CHEW TAB] 81 mg PO QDAY 04/14/19 04/14/19 Unknown History AtorvaSTATin [Lipitor] 40 mg PO QHS 04/14/19 04/14/19 Unknown History Benztropine Mesylate 1 mg PO BID 04/14/19 04/14/19 Unknown History Docusate Sodium [Colace] 100 mg PO BID PRN 04/14/19 04/14/19 Unknown History Ergocalciferol [Vitamin D2] 1 cap PO QWEEK 04/14/19 04/14/19 Unknown History Ferrous Sulfate [Iron 325 MG] 325 mg PO TID 04/14/19 04/14/19 Unknown History Ketoconazole 2% [Nizoral] 1 applicatio TP QDAY 04/14/19 04/14/19 Unknown History Ketoconazole [Ketoconazole shampoo] 120 ml TP QDAY 04/14/19 04/14/19 Unknown History Lisinopril [Zestril TAB] 40 mg PO QDAY 04/14/19 04/14/19 Unknown History Lurasidone HCl [Latuda] 40 mg PO QHS 04/14/19 04/14/19 Unknown History Nystatin Cream [Mycostatin Cream] 1 applic TP BID 04/14/19 04/14/19 Unknown History Pantoprazole [Protonix] 40 mg PO QDAY 04/14/19 04/14/19 Unknown History Sennosides Tab [Senokot] 17.2 mg PO QHS 04/14/19 04/14/19 Unknown History Tamsulosin [Flomax] 0.4 mg PO QHS 04/14/19 04/14/19 Unknown History Ziprasidone [Geodon] 60 mg PO BID 04/14/19 04/14/19 Unknown History Active Meds: Active Medications Acetaminophen (Tylenol) 650 mg PO Q4H PRN PRN Reason: Pain MILD(1-3)/Fever >100.5/FONTANA Acetaminophen/Hydrocodone Bitart ([place] 5/325) 2 each PO Q6H PRN PRN Reason: Pain, Moderate (4-6) Albuterol/Ipratropium (Duoneb *Not For Prn Use*) 1 ampul IH TIDRT [facility] Last Admin: 04/16/19 13:29 Dose: 1 ampul Documented by: Aspirin (Baby Aspirin) 81 mg PO QDAY [facility] Last Admin: 04/16/19 10:06 Dose: 81 mg Documented by: Atorvastatin Calcium (Lipitor) 40 mg PO QHS [facility] Docusate Sodium (Colace) 100 mg PO BID PRN PRN Reason: Constipation Last Admin: 04/16/19 10:06 Dose: 100 mg Documented by: Ergocalciferol (Vitamin D2) 50,000 unit PO QWEEK [facility] Famotidine (Pepcid) 10 mg PO BID [facility] Last Admin: 04/16/19 10:06 Dose: 10 mg Documented by: Ferrous Sulfate (Feosol) 325 mg PO TID [facility] Last Admin: 04/16/19 10:06 Dose: 325 mg Documented by: Guaifenesin (Robitussin) 200 mg PO Q6H PRN PRN Reason: Cough Heparin Sodium (Porcine) (Heparin) 5,000 unit SUB-Q Q12HR [facility] Last Admin: 04/16/19 10:06 Dose: 5,000 unit Documented by: Hydralazine HCl (Apresoline) 5 mg IV Q30MIN PRN PRN Reason: Hypertension Ceftriaxone Sodium (Rocephin/Ns 1 Gm/50 Ml) 1 gm in 50 mls @ 100 mls/hr IV Q12HR [facility]; Protocol Last Admin: 04/16/19 10:07 Dose: 100 mls/hr Documented by: Sodium Chloride (Nacl 0.45% 1000 Ml) 1,000 mls @ 50 mls/hr IV DIRECT [facility] Last Admin: 04/15/19 18:01 Dose: 50 mls/hr Documented by: Azithromycin 500 mg/ Sodium (Chloride) 250 mls @ 250 mls/hr IV Q24H [facility]; Protocol Last Admin: 04/15/19 18:00 Dose: 250 mls/hr Documented by: Insulin Human Regular (Humulin R) 0 units SUB-Q ACHS [facility]; Protocol Last Admin: 04/16/19 11:30 Dose: Not Given Documented by: Miscellaneous Medication (Lurasidone Hcl [Latuda]) 40 mg PO QHS [facility] Ondansetron HCl (Zofran) 4 mg IV Q8H PRN PRN Reason: N/V unrelieved by Reglan Pantoprazole Sodium (Protonix) 40 mg PO QDAY [facility] Last Admin: 04/16/19 10:06 Dose: 40 mg Documented by: Senna (Senokot) 8.6 mg PO Q12HR [facility] Last Admin: 04/16/19 10:06 Dose: 8.6 mg Documented by: Tamsulosin HCl (Flomax) 0.4 mg PO QHS [facility] Review of Systems Constitutional: no weight loss, no weight gain, no fever, no chills, no sweats Ears, nose, mouth and throat: no ear pain, no nose pain, no sinus pressure, no sinus pain Cardiovascular: no chest pain, no orthopnea, no palpitations, no rapid/irregular heart beat, no edema, no syncope, no lightheadedness, no shortness of breath, no dyspnea on exertion Respiratory: cough, no shortness of breath, no dyspnea on exertion, no congestion, no wheezing, no pain on inspiration Gastrointestinal: no abdominal pain, no nausea, no vomiting, no diarrhea, no constipation, no change in bowel habits Genitourinary Male: no dysuria, no hematuria, no flank pain, no discharge, no urinary frequency, no urinary hesitancy Musculoskeletal: no neck stiffness, no neck pain, no shooting arm pain, no arm numbness/tingling, no low back pain, no shooting leg pain Integumentary: no rash, no pruritis, no redness, no sores, no wounds Neurological: no paralysis, no weakness, no parathesias, no numbness, no tingling, no seizures, no syncope Endocrine: no cold intolerance, no heat intolerance Hematologic/Lymphatic: no easy bruising, no easy bleeding Allergic/Immunologic: no urticaria, no wheezing Physical Examination Vital Signs Pulse Resp 78 10 L 04/14/19 07:48 04/14/19 07:48 General appearance: no acute distress, other (lethargic) HEENT: Positive: PERRL, Normocephaly, Mucus Membranes Moist Cardiac: Positive: Regular Rhythm, S1/S2, Bradycardia Lungs: Positive: Decreased Breath Sounds Neuro: Positive: Grossly Intact Abdomen: Negative: Tender Skin: Negative: Rash Musculoskeletal: No Pain Extremities: Absent: edema Results 04/15/19 05:02 04/16/19 04:54 Comprehensive Metabolic Panel 04/16/19 Range/Units 04:54 Sodium 143 (137-145) mmol/L Potassium 4.0 (3.6-5.0) mmol/L Chloride 109.5 H (98-107) mmol/L Carbon Dioxide 26 (22-30) mmol/L BUN 13 (9-20) mg/dL Creatinine 0.6 L (0.8-1.5) mg/dL Glucose 94 (75-100) mg/dL Calcium 8.3 L (8.4-10.2) mg/dL - Imaging and Cardiology Echo: report reviewed EKG: report reviewed, image reviewed EKG interpretations - Telemetry EKG Rhythm: Sinus Bradycardia - EKG Sinus rhythms and dysrhythmias: sinus bradycardia Assessment and Plan Pt noted to have sinus bradycardia with HR low of 31bpm on telemetry, no pauses or AVB noted, HR 50s on evaluation. Pt does not appear to have been receiving any AV patricio blocking agents. He does reportedly have psych disorder, home med rec includes benztropine mesylate which does not typically have side effect of bradycardia. It is unclear whether he was on any additional psych meds prior to admission. Psych consultation pending. Cont to hold AV patricio blocking agents. Check thyroid profile. Cont to monitor on telemetry. Echo reviewed - EF 55-60%, LA mod dilated, mod pulm HTN with RVSP 48mmHg. The patient has been seen in conjunction with Dr. Howie Cervantes who agrees with the assessment and plan of care. - Patient Problems (1) Sinus bradycardia Current Visit: Yes Status: Acute (2) Pneumonia Current Visit: Yes Status: Acute (3) Pleural effusion Current Visit: Yes Status: Acute (4) Altered mental status Current Visit: Yes Status: Acute (5) TOMASZ (acute kidney injury) Current Visit: Yes Status: Acute (6) Dehydration Current Visit: Yes Status: Acute (7) Psychiatric disorder Current Visit: Yes Status: Chronic (8) HTN (hypertension) Current Visit: Yes Status: Chronic (9) Hyperlipidemia Current Visit: Yes Status: Chronic (10) Diabetes Current Visit: Yes Status: Chronic
[2019-04-16] MEDS: ZITHROMAX 500 MG in NACL 0.9% 250ML 250 ML IV SCH (15:08)
[2019-04-16] MEDS ORDERED: NON-FORMULARY (Lurasidone Hcl [Latuda] 40 MG) PO SCH (22:00)
[2019-04-16] MEDS: FLOMAX PO SCH (23:32)
[2019-04-17] MEDS: FEOSOL PO SCH ×4 (00:02→21:13)
[2019-04-17] MEDS: HumuLIN R SUB-Q SCH ×5 (00:08→22:33)
[2019-04-17] MEDS: DUONEB *Not for PRN Use IH SCH ×3 (08:29→20:31)
[2019-04-17] MEDS: PROTONIX PO SCH (09:13)
[2019-04-17] MEDS: BABY ASPIRIN PO SCH (09:13)
[2019-04-17] MEDS: PEPCID PO SCH (09:13)
[2019-04-17] MEDS: SENOKOT PO SCH ×2 (09:13→21:13)
[2019-04-17] MEDS: HEPARIN SUB-Q SCH ×2 (09:14→21:13)
[2019-04-17] MEDS: ROCEPHIN/NS 1 GM/50 ML 1 GM/50 ML BAG IV SCH ×2 (09:14→22:33)
--- NOTE | 2019-04-17 12:39 | Progress Note ---
Assessment and Plan Tele reviewed - pt currently in NSR HR 70s with sinus bradycardia HR 30s overnight, no pauses or AVB noted. Thyroid profile WNL. Psych consultation pending. Cont to hold AV patricio blocking agents. Cont to monitor on telemetry. The patient has been seen in conjunction with Dr. Howie Cevrantes who agrees with the assessment and plan of care. - Patient Problems (1) Sinus bradycardia Current Visit: Yes Status: Acute (2) Pneumonia Current Visit: Yes Status: Acute (3) Pleural effusion Current Visit: Yes Status: Acute (4) Altered mental status Current Visit: Yes Status: Acute (5) TOMASZ (acute kidney injury) Current Visit: Yes Status: Acute (6) Dehydration Current Visit: Yes Status: Acute (7) Psychiatric disorder Current Visit: Yes Status: Chronic (8) HTN (hypertension) Current Visit: Yes Status: Chronic (9) Hyperlipidemia Current Visit: Yes Status: Chronic (10) Diabetes Current Visit: Yes Status: Chronic Subjective Date of service: 04/17/19 Principal diagnosis: sinus bradycardia Interval history: pt resting in bed, no current complaints. tele reviewed - currently in NSR HR 70s with sinus bradycardia HR 30s overnight, no pauses or AVB noted. Objective Last Vital Signs Temp 97.5 F L 04/17/19 08:19 Pulse 97 H 04/17/19 08:31 Resp 18 04/17/19 08:31 BP 123/64 04/17/19 08:19 Pulse Ox 96 04/17/19 10:00 - Physical Examination General: No Apparent Distress HEENT: Positive: PERRL, Normocephaly, Mucus Membranes Moist Cardiac: Positive: Regular Rhythm, S1/S2 Neuro: Positive: Grossly Intact Abdomen: Negative: Tender Skin: Negative: Rash Musculoskeletal: No Pain Extremities: Absent: edema - Imaging and Cardiology EKG: report reviewed, image reviewed Echo: report reviewed ( EF 55-60%, LA mod dilated, mod pulm HTN with RVSP 48mmHg. ) - EKG Sinus rhythms and dysrhythmias: sinus bradycardia
--- NOTE | 2019-04-17 12:55 | Consultation ---
History of Present Illness - Reason for Consult Consult date: 04/17/19 Reason for consult: Mental Health Evaluation Requesting physician: JOSE BAUTISTA - Chief Complaint Chief complaint: "I came from a half-way" - History of Present Psychiatric Illness 64 y.o. white male who presented to the ER for persistent cough over several days. Psychiatry was consulted to see the patient for medication mgmt. Today the patient was calm, but vague during the assessment. He would not answer most questions asked of him reference his mental health. He was able to recall 2/3 numbers in 5 mins and state the names of the current/past [place] Presidents. He denies SI/HI's and AVH's. Medications and Allergies Allergies Allergy/AdvReac Type Severity Reaction Status Date / Time No Known Allergies Allergy Verified 10/11/18 14:24 Home Medications Medication Instructions Recorded Confirmed Last Taken Type Aspirin [Aspirin BABY CHEW TAB] 81 mg PO QDAY 04/14/19 04/14/19 Unknown History AtorvaSTATin [Lipitor] 40 mg PO QHS 04/14/19 04/14/19 Unknown History Benztropine Mesylate 1 mg PO BID 04/14/19 04/14/19 Unknown History Docusate Sodium [Colace] 100 mg PO BID PRN 04/14/19 04/14/19 Unknown History Ergocalciferol [Vitamin D2] 1 cap PO QWEEK 04/14/19 04/14/19 Unknown History Ferrous Sulfate [Iron 325 MG] 325 mg PO TID 04/14/19 04/14/19 Unknown History Ketoconazole 2% [Nizoral] 1 applicatio TP QDAY 04/14/19 04/14/19 Unknown History Ketoconazole [Ketoconazole shampoo] 120 ml TP QDAY 04/14/19 04/14/19 Unknown History Lisinopril [Zestril TAB] 40 mg PO QDAY 04/14/19 04/14/19 Unknown History Lurasidone HCl [Latuda] 40 mg PO QHS 04/14/19 04/14/19 Unknown History Nystatin Cream [Mycostatin Cream] 1 applic TP BID 04/14/19 04/14/19 Unknown History Pantoprazole [Protonix] 40 mg PO QDAY 04/14/19 04/14/19 Unknown History Sennosides Tab [Senokot] 17.2 mg PO QHS 04/14/19 04/14/19 Unknown History Tamsulosin [Flomax] 0.4 mg PO QHS 04/14/19 04/14/19 Unknown History Ziprasidone [Geodon] 60 mg PO BID 04/14/19 04/14/19 Unknown History Active Meds: Active Medications Acetaminophen (Tylenol) 650 mg PO Q4H PRN PRN Reason: Pain MILD(1-3)/Fever >100.5/FONTANA Acetaminophen/Hydrocodone Bitart ([place] 5/325) 2 each PO Q6H PRN PRN Reason: Pain, Moderate (4-6) Albuterol/Ipratropium (Duoneb *Not For Prn Use*) 1 ampul IH TIDRT [facility] Last Admin: 04/17/19 08:29 Dose: 1 ampul Documented by: Aspirin (Baby Aspirin) 81 mg PO QDAY [facility] Last Admin: 04/17/19 09:13 Dose: 81 mg Documented by: Atorvastatin Calcium (Lipitor) 40 mg PO QHS [facility] Last Admin: 04/16/19 23:32 Dose: 40 mg Documented by: Docusate Sodium (Colace) 100 mg PO BID PRN PRN Reason: Constipation Last Admin: 04/16/19 10:06 Dose: 100 mg Documented by: Ergocalciferol (Vitamin D2) 50,000 unit PO Th [facility] Ferrous Sulfate (Feosol) 325 mg PO TID [facility] Last Admin: 04/17/19 09:13 Dose: 325 mg Documented by: Guaifenesin (Robitussin) 200 mg PO Q6H PRN PRN Reason: Cough Heparin Sodium (Porcine) (Heparin) 5,000 unit SUB-Q Q12HR [facility] Last Admin: 04/17/19 09:14 Dose: 5,000 unit Documented by: Hydralazine HCl (Apresoline) 5 mg IV Q30MIN PRN PRN Reason: Hypertension Ceftriaxone Sodium (Rocephin/Ns 1 Gm/50 Ml) 1 gm in 50 mls @ 100 mls/hr IV Q12HR [facility]; Protocol Last Admin: 04/17/19 09:14 Dose: 100 mls/hr Documented by: Azithromycin 500 mg/ Sodium (Chloride) 250 mls @ 250 mls/hr IV Q24H [facility]; Protocol Last Admin: 04/16/19 15:08 Dose: 250 mls/hr Documented by: Insulin Human Regular (Humulin R) 0 units SUB-Q ACHS [facility]; Protocol Last Admin: 04/17/19 09:42 Dose: Not Given Documented by: Miscellaneous Medication (Lurasidone Hcl [Latuda]) 40 mg PO QHS [facility] Ondansetron HCl (Zofran) 4 mg IV Q8H PRN PRN Reason: N/V unrelieved by Reglan Pantoprazole Sodium (Protonix) 40 mg PO QDAY [facility] Last Admin: 04/17/19 09:13 Dose: 40 mg Documented by: Senna (Senokot) 8.6 mg PO Q12HR [facility] Last Admin: 04/17/19 09:13 Dose: 8.6 mg Documented by: Tamsulosin HCl (Flomax) 0.4 mg PO QHS [facility] Last Admin: 04/16/19 23:32 Dose: 0.4 mg Documented by: Past psychiatric history - Past Medical History Past Medical History: diabetes, hypertension Past Surgical History: Other (Unable to obtain) - past Psychiatric treatment and history psychiatric treatment history: Unable to obtain a psy hx and fam psy hx. - Social History Social history: other (Reside at a half-way) Mental Status Exam - Vital signs Last Vital Signs Temp 97.5 F L 04/17/19 08:19 Pulse 97 H 04/17/19 08:31 Resp 18 04/17/19 08:31 BP 123/64 04/17/19 08:19 Pulse Ox 96 04/17/19 10:00 - Exam Narrative exam: MSE: Appearance: calm Behavior: poor eye contact Speech: regular rate and tone l Mood: "okay" Affect: congruent to mood Thought Process: unable to assess Thought Content: denies SI/HI's and AVH's Motor Activity: sitting up in bed Cognition: A/O x3 Insight: unable to assess Judgment: unable to assess Results Result Diagrams: 04/15/19 05:02 04/16/19 04:54 Abnormal lab results 04/16/19 04/16/19 04/16/19 Range/Units 12:34 16:47 21:24 POC Glucose 114 H 195 H 118 H (70-105) All other labs normal. Assessment and Plan Assessment and plan: Impression: Today the patient was, but vague during the assessment. Recommendation/Plan: Reassess the patient in 24 hours. Attempt to gather collateral information. Will staff with Dr. Nhan Hampton.
--- NOTE | 2019-04-17 15:02 | Progress Note ---
Assessment and Plan Assessment and plan: Patient is a 64-year-old [place] man from [facility] with h/o HTN, HLD, DM type 2, Schizoaffective disoder, MDD and PTSD who presented to [facility] with AMS and cough. presented with a chief complaint of cough. Patient was found to be hypoxic, CXR showed left sided moderate pleural effusion, hypotensive. In the ED the patient was placed on supplemental O2 and saturation improved to approximately 95%. He was given 3L of NS bolus for hypotension and admitted to the hospital. * pCXR IMPRESSION: 1. Interval resolution of left lung field opacity which may represent a resolved pleural effusion. 2. Mildly prominent pulmonary interstitium suggestive of mild pulmonary edema. Acute Encephalopathy, POA Sinus bradycardia: Cardiology consulted, input noted LLL PNA: continue iv abx Left Pleural effusion, resolved hypernatremia, likely from dehydration: adjust fluid, repeat bmp am TOMASZ, vasomotor nephropathy + ATN, poa: repeat bmp am AOCD: check h/h in am Hypotension, from hypovolemia, resolved Schizoaffective disorder: mental health following HTN h/o, now hypotensive but resolved with IVF: continue to monitor DM type 2: ssi, ada Odynophagia, mechanical soft diet ground meats with regular liquids. Disposition: continue inpatient care, anticipate d/c to [place] tomorrow, last day of iv abx then oral abx at [place] History Interval history: Patient was seen and examined. Follow-up on current diagnosis AMS, resolved. No overnight events reported to me. Patient denies any chest pain, shortness breath, nausea/vomiting or severe headaches. Imaging, nursing note, chart, labs and old chart reviewed. Discussed with patient. Hospitalist Physical - Physical exam Narrative exam: Gen: chronically diable appearing, NAD, Awake, Alert, Orientated x 3 HEENT: NCAT, EOMI, PERRL, OP Clear Neck: supple, no adenopathy, no thyromegaly, no JVD CVS/Heart: RRR, normal S1S2, pulses present bilaterally Chest/Lungs: CTA B, Symmetrical chest expansion, good air entry bilaterally GI/Abdomen: soft, NTND, good bowel sounds, no guarding or rebound /Bladder: no suprapubic tenderness, no CVA or paraspinal tenderness Extermity/Skin: no c/c/e, no obvious rash MSK: FROM x 4 Neuro: CN 2-12 grossly intact, no new focal deficits Psych: calm - Constitutional Vitals: Temp Pulse Resp BP Pulse Ox 98.0 F 89 18 141/81 95 04/17/19 12:43 04/17/19 14:00 04/17/19 14:00 04/17/19 12:43 04/17/19 12:43 General appearance: Present: no acute distress, other (lethargic) Results - Labs CBC & Chem 7: 04/15/19 05:02 04/16/19 04:54 Labs: Laboratory Last Values WBC 5.8 K/mm3 (4.5-11.0) 04/15/19 05:02 RBC 3.49 M/mm3 (3.65-5.03) L 04/15/19 05:02 Hgb 10.1 gm/dl (11.8-15.2) L 04/15/19 05:02 Hct 30.5 % (35.5-45.6) L 04/15/19 05:02 MCV 87 fl (84-94) 04/15/19 05:02 MCH 29 pg (28-32) 04/15/19 05:02 MCHC 33 % (32-34) 04/15/19 05:02 RDW 16.0 % (13.2-15.2) H 04/15/19 05:02 Plt Count 252 K/mm3 (140-440) 04/15/19 05:02 Lymph % (Auto) 24.1 % (13.4-35.0) 04/15/19 05:02 [place] % (Auto) 5.8 % (0.0-7.3) 04/15/19 05:02 Eos % (Auto) 2.0 % (0.0-4.3) 04/15/19 05:02 Baso % (Auto) 1.1 % (0.0-1.8) 04/15/19 05:02 Lymph # 1.4 K/mm3 (1.2-5.4) 04/15/19 05:02 [place] # 0.3 K/mm3 (0.0-0.8) 04/15/19 05:02 Eos # 0.1 K/mm3 (0.0-0.4) 04/15/19 05:02 Baso # 0.1 K/mm3 (0.0-0.1) 04/15/19 05:02 Seg Neutrophils % 67.0 % (40.0-70.0) 04/15/19 05:02 Seg Neutrophils # 3.9 K/mm3 (1.8-7.7) 04/15/19 05:02 Sodium 143 mmol/L (137-145) 04/16/19 04:54 Potassium 4.0 mmol/L (3.6-5.0) 04/16/19 04:54 Chloride 109.5 mmol/L (98-107) H 04/16/19 04:54 Carbon Dioxide 26 mmol/L (22-30) 04/16/19 04:54 12 mmol/L 04/16/19 04:54 BUN 13 mg/dL (9-20) 04/16/19 04:54 0.6 mg/dL (0.8-1.5) L 04/16/19 04:54 Estimated GFR > 60 ml/min 04/16/19 04:54 22 % 04/16/19 04:54 Glucose 94 mg/dL (75-100) 04/16/19 04:54 POC Glucose 117 (70-105) H 04/17/19 12:49 Lactic Acid 1.00 mmol/L (0.7-2.0) 04/14/19 21:03 Calcium 8.3 mg/dL (8.4-10.2) L 04/16/19 04:54 0.20 mg/dL (0.1-1.2) 04/14/19 08:07 AST 57 units/L (5-40) H 04/14/19 08:07 ALT 33 units/L (7-56) 04/14/19 08:07 72 units/L (35-129) 04/14/19 08:07 6.6 g/dL (6.3-8.2) 04/14/19 08:07 3.4 g/dL (3.9-5) L 04/14/19 08:07 1.1 % 04/14/19 08:07 TSH 2.520 mlU/mL (0.270-4.200) 04/16/19 15:14 Free T4 1.05 ng/dL (0.76-1.46) 04/16/19 15:14 Yellow (Yellow) 04/14/19 Unknown Hazy (Clear) 04/14/19 Unknown 5.0 (5.0-7.0) 04/14/19 Unknown Ur Specific [place] 1.016 (1.003-1.030) 04/14/19 Unknown <15 mg/dl mg/dL (Negative) 04/14/19 Unknown 50 mg/dL (Negative) 04/14/19 Unknown Neg mg/dL (Negative) 04/14/19 Unknown Neg (Negative) 04/14/19 Unknown Neg (Negative) 04/14/19 Unknown Neg (Negative) 04/14/19 Unknown < 2.0 mg/dL (<2.0) 04/14/19 Unknown Ur Leukocyte Esterase Neg (Negative) 04/14/19 Unknown 3.0 /HPF (0.0-6.0) 04/14/19 Unknown 9.0 /HPF (0.0-6.0) 04/14/19 Unknown Uric Acid Crystals 1+ 04/14/19 Unknown Active Medications - Current Medications Current Medications: Generic Name Dose Route Start Last Admin Trade Name Freq PRN Reason Stop Dose Admin Acetaminophen 650 mg 04/14/19 10:28 Tylenol PO Q4H PRN Pain MILD(1-3)/Fever >100.5/FONTANA Acetaminophen/Hydrocodone Bitart 2 each 04/14/19 10:28 [place] 5/325 PO Q6H PRN Pain, Moderate (4-6) Albuterol/Ipratropium 1 ampul 04/14/19 14:00 04/17/19 13:58 Duoneb *Not For Prn Use* IH 1 ampul TIDRT ALONZO Administration Aspirin 81 mg 04/16/19 10:00 04/17/19 09:13 Baby Aspirin PO 81 mg QDAY ALONZO Administration Atorvastatin Calcium 40 mg 04/16/19 22:00 04/16/19 23:32 Lipitor PO 40 mg QHS ALONZO Administration Docusate Sodium 100 mg 04/16/19 10:00 04/16/19 10:06 Colace PO 100 mg BID PRN Administration Constipation Ergocalciferol 50,000 unit 04/19/19 08:00 Vitamin D2 PO Th ALONZO Ferrous Sulfate 325 mg 04/16/19 09:00 04/17/19 14:31 Feosol PO 325 mg TID ALONZO Administration Guaifenesin 200 mg 04/14/19 17:46 Robitussin PO Q6H PRN Cough Heparin Sodium (Porcine) 5,000 unit 04/14/19 22:00 04/17/19 09:14 Heparin SUB-Q 5,000 unit Q12HR ALONZO Administration Hydralazine HCl 5 mg 04/14/19 10:28 Apresoline IV Q30MIN PRN Hypertension Ceftriaxone Sodium 1 gm in 50 mls @ 100 mls/hr 04/14/19 22:00 04/17/19 09:14 Rocephin/Ns 1 Gm/50 Ml IV 100 mls/hr Q12HR ALONZO Administration Protocol Azithromycin 500 mg/ Sodium 250 mls @ 250 mls/hr 04/15/19 16:00 04/16/19 15:08 Chloride IV 250 mls/hr Q24H ALONZO Administration Protocol Insulin Human Regular 0 units 04/14/19 11:30 04/17/19 14:29 Humulin R SUB-Q Not Given ACHS [facility] Protocol Miscellaneous Medication 40 mg 04/16/19 22:00 Lurasidone Hcl [Latuda] PO QHS ALONZO Ondansetron HCl 4 mg 04/14/19 10:28 Zofran IV Q8H PRN N/V unrelieved by Sophie Pantoprazole Sodium 40 mg 04/16/19 10:00 04/17/19 09:13 Protonix PO 40 mg QDAY ALONZO Administration Senna 8.6 mg 04/14/19 22:00 04/17/19 09:13 Senokot PO 8.6 mg Q12HR ALONZO Administration Tamsulosin HCl 0.4 mg 04/16/19 22:00 04/16/19 23:32 Flomax PO 0.4 mg QHS ALONZO Administration Nutrition/Malnutrition Assess - Dietary Evaluation Nutrition/Malnutrition Findings: Nutrition Notes Start: 04/16/19 15:07 Freq: Status: Active Protocol: Document 04/16/19 15:07 ROSI (Rec: 04/16/19 15:10 ROSI [id number] [id number]) Nutrition Notes Need for Assessment generated from: rehabilitation aide Initial or Follow up Brief Note Current Diagnosis Acute Kidney Injury,Diabetes, Hypertension Other Pertinent Diagnosis LLL pneu, (L) pleural effusion , schizoaffective D/O Current Diet Mech soft Height 6 ft 4 in Weight 110.4 kg [place] Body Weight (kg) 91.81 BMI 29.6 Subjective/Other Information Pt screened for chewing difficulty and skin risk ( Brian score: 10). Nutrition Intervention Follow-Up By: 04/20/19 Additional Comments F/U: intakes
[2019-04-17] MEDS: ZITHROMAX 500 MG in NACL 0.9% 250ML 250 ML IV SCH (15:50)
[2019-04-17] MEDS: HALDOL IM PRN (17:00)
[2019-04-17] MEDS: FLOMAX PO SCH (21:13)
[2019-04-17] MEDS ORDERED: ATIVAN IV NR (22:10)
[2019-04-18 06:17] LABS: Hematocrit 30.8 % (35.5-45.6); Hemoglobin 10.1 gm/dl (11.8-15.2); Mean Corpuscular HGB Conc 33 % (32-34); Mean Corpuscular Volume 85 fl (84-94); Platelet Count 244 K/mm3 (140-440); Red Blood Count 3.61 M/mm3 (3.65-5.03)
[2019-04-18 06:43] LABS: BUN/Creatinine Ratio 12; Blood Urea Nitrogen 6 mg/dL (9-20); Calcium 8.3 mg/dL (8.4-10.2); Hemolysis Index 79
[2019-04-18] MEDS: HumuLIN R SUB-Q SCH ×4 (08:37→22:50)
[2019-04-18] MEDS: DUONEB *Not for PRN Use IH SCH ×3 (09:25→20:41)
--- NOTE | 2019-04-18 10:18 | Progress Note ---
Assessment and Plan Currently stable cardiac status. Pt remains in SR/SB with HR mostly 50s - 60s overnight, no pauses or AVB noted. Cont to avoid AV patricio blocking agents. Cont to monitor on telemetry. Nothing further to add from cardiac perspective at this time. Will sign off. The patient has been seen in conjunction with Dr. Howie Cervantes who agrees with the assessment and plan of care. - Patient Problems (1) Sinus bradycardia Current Visit: Yes Status: Acute (2) Pneumonia Current Visit: Yes Status: Acute (3) Pleural effusion Current Visit: Yes Status: Acute (4) Altered mental status Current Visit: Yes Status: Acute (5) TOMASZ (acute kidney injury) Current Visit: Yes Status: Acute (6) Dehydration Current Visit: Yes Status: Acute (7) Psychiatric disorder Current Visit: Yes Status: Chronic (8) HTN (hypertension) Current Visit: Yes Status: Chronic (9) Hyperlipidemia Current Visit: Yes Status: Chronic (10) Diabetes Current Visit: Yes Status: Chronic Subjective Date of service: 04/18/19 Principal diagnosis: sinus bradycardia Interval history: pt resting in bed, no current complaints. tele reviewed - currently in NSR HR 70s with SB mostly HR 50s - 60s overnight, no pauses or AVB noted. Objective Last Vital Signs Temp 97.3 F L 04/18/19 08:22 Pulse 61 04/18/19 09:25 Resp 18 04/18/19 09:25 BP 113/80 04/18/19 08:22 Pulse Ox 96 04/18/19 09:38 - Physical Examination General: No Apparent Distress HEENT: Positive: PERRL, Normocephaly, Mucus Membranes Moist Cardiac: Positive: Reg Rate and Rhythm, S1/S2 Lungs: Positive: Decreased Breath Sounds Neuro: Positive: Grossly Intact Abdomen: Negative: Tender Skin: Negative: Rash Musculoskeletal: No Pain Extremities: Absent: edema - Labs and Meds CBC 04/18/19 Range/Units 05:53 WBC 4.3 L (4.5-11.0) K/mm3 RBC 3.61 L (3.65-5.03) M/mm3 Hgb 10.1 L (11.8-15.2) gm/dl Hct 30.8 L (35.5-45.6) % Plt Count 244 (140-440) K/mm3 Comprehensive Metabolic Panel 04/18/19 Range/Units 05:53 Sodium 139 (137-145) mmol/L Potassium 4.3 (3.6-5.0) mmol/L Chloride 103.9 (98-107) mmol/L Carbon Dioxide 26 (22-30) mmol/L BUN 6 L (9-20) mg/dL Creatinine 0.5 L (0.8-1.5) mg/dL Glucose 98 (75-100) mg/dL Calcium 8.3 L (8.4-10.2) mg/dL - Imaging and Cardiology EKG: report reviewed, image reviewed Echo: report reviewed ( EF 55-60%, LA mod dilated, mod pulm HTN with RVSP 48mmHg. ) - EKG Sinus rhythms and dysrhythmias: sinus bradycardia
[2019-04-18] MEDS: PROTONIX PO SCH (10:24)
[2019-04-18] MEDS: FEOSOL PO SCH ×3 (10:24→21:45)
[2019-04-18] MEDS: COLACE PO PRN (10:24)
[2019-04-18] MEDS: BABY ASPIRIN PO SCH (10:24)
[2019-04-18] MEDS: SENOKOT PO SCH ×2 (10:25→22:50)
[2019-04-18] MEDS: ROCEPHIN/NS 1 GM/50 ML 1 GM/50 ML BAG IV SCH (10:25)
[2019-04-18] MEDS: HEPARIN SUB-Q SCH ×2 (10:25→22:50)
--- NOTE | 2019-04-18 17:35 | Progress Note ---
Assessment and Plan Assessment and plan: Patient is a 64-year-old [place] man from [facility] with h/o HTN, HLD, DM type 2, Schizoaffective disoder, MDD and PTSD who presented to [facility] with AMS and cough. presented with a chief complaint of cough. Patient was found to be hypoxic, CXR showed left sided moderate pleural effusion, hypotensive. In the ED the patient was placed on supplemental O2 and saturation improved to approximately 95%. He was given 3L of NS bolus for hypotension and admitted to the hospital. * pCXR IMPRESSION: 1. Interval resolution of left lung field opacity which may represent a resolved pleural effusion. 2. Mildly prominent pulmonary interstitium suggestive of mild pulmonary edema. Acute Encephalopathy, POA Sinus bradycardia: Cardiology consulted, input noted LLL PNA: continue iv abx Left Pleural effusion, resolved hypernatremia, likely from dehydration: adjust fluid, repeat bmp am TOMASZ, vasomotor nephropathy + ATN, poa: repeat bmp am AOCD: check h/h in am Hypotension, from hypovolemia, resolved Schizoaffective disorder: mental health following HTN h/o, now hypotensive but resolved with IVF: continue to monitor DM type 2: ssi, ada Odynophagia, mechanical soft diet ground meats with regular liquids. Disposition: continue inpatient care, anticipate d/c to [place] tomorrow, last day of iv abx then oral abx at [place]===> patient was to go back to OR today after IV rocephin but it somehow the order got canceled for today and so it was re- ordered, hence the last discharge order. Now he can go back. History Interval history: Patient was seen and examined. Follow-up on current diagnosis AMS, resolved. No overnight events reported to me. Patient denies any chest pain, shortness capri th, nausea/vomiting or severe headaches. Imaging, nursing note, chart, labs and old chart reviewed. Discussed with patient. Hospitalist Physical - Physical exam Narrative exam: Gen: chronically diable appearing, NAD, Awake, Alert, Orientated x 3 HEENT: NCAT, EOMI, PERRL, OP Clear Neck: supple, no adenopathy, no thyromegaly, no JVD CVS/Heart: RRR, normal S1S2, pulses present bilaterally Chest/Lungs: CTA B, Symmetrical chest expansion, good air entry bilaterally GI/Abdomen: soft, NTND, good bowel sounds, no guarding or rebound /Bladder: no suprapubic tenderness, no CVA or paraspinal tenderness Extermity/Skin: no c/c/e, no obvious rash MSK: FROM x 4 Neuro: CN 2-12 grossly intact, no new focal deficits Psych: calm - Constitutional Vitals: Temp Pulse Resp BP Pulse Ox 98.0 F 58 L 18 107/68 97 04/18/19 11:58 04/18/19 13:54 04/18/19 13:54 04/18/19 11:58 04/18/19 11:58 General appearance: Present: no acute distress, other (lethargic) Results - Labs CBC & Chem 7: 04/18/19 05:53 04/18/19 05:53 Labs: Laboratory Last Values WBC 4.3 K/mm3 (4.5-11.0) L 04/18/19 05:53 RBC 3.61 M/mm3 (3.65-5.03) L 04/18/19 05:53 Hgb 10.1 gm/dl (11.8-15.2) L 04/18/19 05:53 Hct 30.8 % (35.5-45.6) L 04/18/19 05:53 MCV 85 fl (84-94) 04/18/19 05:53 MCH 28 pg (28-32) 04/18/19 05:53 MCHC 33 % (32-34) 04/18/19 05:53 RDW 15.0 % (13.2-15.2) 04/18/19 05:53 Plt Count 244 K/mm3 (140-440) 04/18/19 05:53 Lymph % (Auto) 24.1 % (13.4-35.0) 04/15/19 05:02 [place] % (Auto) 5.8 % (0.0-7.3) 04/15/19 05:02 Eos % (Auto) 2.0 % (0.0-4.3) 04/15/19 05:02 Baso % (Auto) 1.1 % (0.0-1.8) 04/15/19 05:02 Lymph # 1.4 K/mm3 (1.2-5.4) 04/15/19 05:02 [place] # 0.3 K/mm3 (0.0-0.8) 04/15/19 05:02 Eos # 0.1 K/mm3 (0.0-0.4) 04/15/19 05:02 Baso # 0.1 K/mm3 (0.0-0.1) 04/15/19 05:02 Seg Neutrophils % 67.0 % (40.0-70.0) 04/15/19 05:02 Seg Neutrophils # 3.9 K/mm3 (1.8-7.7) 04/15/19 05:02 Sodium 139 mmol/L (137-145) 04/18/19 05:53 Potassium 4.3 mmol/L (3.6-5.0) 04/18/19 05:53 Chloride 103.9 mmol/L (98-107) 04/18/19 05:53 Carbon Dioxide 26 mmol/L (22-30) 04/18/19 05:53 13 mmol/L 04/18/19 05:53 BUN 6 mg/dL (9-20) L 04/18/19 05:53 0.5 mg/dL (0.8-1.5) L 04/18/19 05:53 Estimated GFR > 60 ml/min 04/18/19 05:53 12 % 04/18/19 05:53 Glucose 98 mg/dL (75-100) 04/18/19 05:53 POC Glucose 110 (70-105) H 04/18/19 12:06 Lactic Acid 1.00 mmol/L (0.7-2.0) 04/14/19 21:03 Calcium 8.3 mg/dL (8.4-10.2) L 04/18/19 05:53 0.20 mg/dL (0.1-1.2) 04/14/19 08:07 AST 57 units/L (5-40) H 04/14/19 08:07 ALT 33 units/L (7-56) 04/14/19 08:07 72 units/L (35-129) 04/14/19 08:07 6.6 g/dL (6.3-8.2) 04/14/19 08:07 3.4 g/dL (3.9-5) L 04/14/19 08:07 1.1 % 04/14/19 08:07 TSH 2.520 mlU/mL (0.270-4.200) 04/16/19 15:14 Free T4 1.05 ng/dL (0.76-1.46) 04/16/19 15:14 Yellow (Yellow) 04/14/19 Unknown Hazy (Clear) 04/14/19 Unknown 5.0 (5.0-7.0) 04/14/19 Unknown Ur Specific [place] 1.016 (1.003-1.030) 04/14/19 Unknown <15 mg/dl mg/dL (Negative) 04/14/19 Unknown 50 mg/dL (Negative) 04/14/19 Unknown Neg mg/dL (Negative) 04/14/19 Unknown Neg (Negative) 04/14/19 Unknown Neg (Negative) 04/14/19 Unknown Neg (Negative) 04/14/19 Unknown < 2.0 mg/dL (<2.0) 04/14/19 Unknown Ur Leukocyte Esterase Neg (Negative) 04/14/19 Unknown 3.0 /HPF (0.0-6.0) 04/14/19 Unknown 9.0 /HPF (0.0-6.0) 04/14/19 Unknown Uric Acid Crystals 1+ 04/14/19 Unknown Active Medications - Current Medications Current Medications: Generic Name Dose Route Start Last Admin Trade Name Freq PRN Reason Stop Dose Admin Acetaminophen 650 mg 04/14/19 10:28 Tylenol PO Q4H PRN Pain MILD(1-3)/Fever >100.5/FONTANA Acetaminophen/Hydrocodone Bitart 2 each 04/14/19 10:28 [place] 5/325 PO Q6H PRN Pain, Moderate (4-6) Albuterol/Ipratropium 1 ampul 04/14/19 14:00 04/18/19 13:55 Duoneb *Not For Prn Use* IH 1 ampul TIDRT ALONZO Administration Aspirin 81 mg 04/16/19 10:00 04/18/19 10:24 Baby Aspirin PO 81 mg QDAY ALONZO Administration Atorvastatin Calcium 40 mg 04/16/19 22:00 04/17/19 21:13 Lipitor PO 40 mg QHS ALONZO Administration Docusate Sodium 100 mg 04/16/19 10:00 04/18/19 10:24 Colace PO 100 mg BID PRN Administration Constipation Ergocalciferol 50,000 unit 04/19/19 08:00 Vitamin D2 PO Th ALONZO Ferrous Sulfate 325 mg 04/16/19 09:00 04/18/19 14:34 Feosol PO 325 mg TID ALONZO Administration Guaifenesin 200 mg 04/14/19 17:46 Robitussin PO Q6H PRN Cough Haloperidol Lactate 5 mg 04/17/19 16:26 04/17/19 17:00 Haldol IM 5 mg Q12HR PRN Administration Agitation Heparin Sodium (Porcine) 5,000 unit 04/14/19 22:00 04/18/19 10:25 Heparin SUB-Q 5,000 unit Q12HR ALONZO Administration Hydralazine HCl 5 mg 04/14/19 10:28 Apresoline IV Q30MIN PRN Hypertension Ceftriaxone Sodium 1 gm in 50 mls @ 100 mls/hr 04/19/19 10:00 Rocephin/Ns 1 Gm/50 Ml IV Q24HR [facility] Protocol Insulin Human Regular 0 units 04/14/19 11:30 04/18/19 12:38 Humulin R SUB-Q Not Given ACHS [facility] Protocol Miscellaneous Medication 40 mg 04/16/19 22:00 Lurasidone Hcl [Latuda] PO QHS ALONZO Pantoprazole Sodium 40 mg 04/16/19 10:00 04/18/19 10:24 Protonix PO 40 mg QDAY ALONZO Administration Senna 8.6 mg 04/14/19 22:00 04/18/19 10:25 Senokot PO 8.6 mg Q12HR ALONZO Administration Tamsulosin HCl 0.4 mg 04/16/19 22:00 04/17/19 21:13 Flomax PO 0.4 mg QHS ALONZO Administration Nutrition/Malnutrition Assess - Dietary Evaluation Nutrition/Malnutrition Findings: Nutrition Notes Start: 04/16/19 15:07 Freq: Status: Active Protocol: Document 04/16/19 15:07 ROSI (Rec: 04/16/19 15:10 ROSI [email or web address]) Nutrition Notes Need for Assessment generated from: motor bike mechanic Initial or Follow up Brief Note Current Diagnosis Acute Kidney Injury,Diabetes, Hypertension Other Pertinent Diagnosis LLL pneu, (L) pleural effusion , schizoaffective D/O Current Diet Mech soft Height 6 ft 4 in Weight 110.4 kg [place] Body Weight (kg) 91.81 BMI 29.6 Subjective/Other Information Pt screened for chewing difficulty and skin risk ( Brian score: 10). Nutrition Intervention Follow-Up By: 04/20/19 Additional Comments F/U: intakes
--- NOTE | 2019-04-18 17:43 | Discharge Summary ---
Providers - Providers Date of Admission: 04/14/19 10:09 Date of discharge: 04/19/19 Attending physician: LAURA REYES 04/14/19 12:29 Speech Therapy Evaluation and Treat [CONS] Routine Reason For Exam: Pt report difficulty swallowing 04/16/19 10:11 Physical Therapy Evaluation and Treat [CONS] Routine Comment: Reason For Exam: eval 04/16/19 13:38 Consult to Physician [CONS] Routine Comment: Consulting Provider: STEPHANIE ABURTO Physician Instructions: Reason For Exam: sinus bradycardia 04/16/19 13:50 Consult to Mental Health [CONS] Routine Reason For Exam: psych meds recommendation Place consult to:: mental health Notified:: yes Was contact made?: Yes Primary care physician: LEONILA MICHAEL Hospitalization Condition: Stable Hospital course: Patient is a 64-year-old [place] man from [facility] with h/o HTN, HLD, DM type 2, Schizoaffective disoder, MDD and PTSD who presented to [facility] with AMS and cough. presented with a chief complaint of cough. Patient was found to be hypoxic, CXR showed left sided moderate pleural effusion, hypotensive. In the ED the patient was placed on supplemental O2 and saturation improved to approximately 95%. He was given 3L of NS bolus for hypotension and admitted to the hospital. * Repeat pCXR IMPRESSION: 1. Interval resolution of left lung field opacity which may represent a resolved pleural effusion. 2. Mildly prominent pulmonary interstitium suggestive of mild pulmonary edema. Acute metabolic Encephalopathy, POA Sinus bradycardia: Cardiology consulted, input noted LLL PNA: treat with abx Left Pleural effusion, resolved hypernatremia, likely from dehydration: adjust fluid, repeat bmp am TOMASZ, due to ATN + vasomotor nephropathy, poa: resolved, cR 0.5 AOCD: check h/h in am Hypotension, from hypovolemia, resolved Schizoaffective disorder: mental health following, add Haldol, I believe patient a has component of own HTN h/o, now hypotensive but resolved with IVF: continue to monitor DM type 2: ssi, ada Odynophagia, mechanical soft diet ground meats with regular liquids. Disposition: back to [facility] Disposition: [id number]-03 SNF W [facility] CERT Time spent for discharge: 31 minutes Core Measure Documentation - Palliative Care Palliative Care/ Comfort Measures: Not Applicable - Core Measures Any of the following diagnoses?: none - VTE Discharge Requirements Deep Vein Thrombosis/Pulmonary Embolism Present on Admission: No Has pt received <5 days of overlap therapy or INR<2.0: No Anticoagulant overlap therapy prescribed at discharge: No Contraindication No Overlap Therapy order at DC: Not Indicated Exam - Physical Exam Narrative exam: Gen: chronically diable appearing, NAD, Awake, Alert, Orientated x 3 HEENT: NCAT, EOMI, PERRL, OP Clear Neck: supple, no adenopathy, no thyromegaly, no JVD CVS/Heart: RRR, normal S1S2, pulses present bilaterally Chest/Lungs: CTA B, Symmetrical chest expansion, good air entry bilaterally GI/Abdomen: soft, NTND, good bowel sounds, no guarding or rebound /Bladder: no suprapubic tenderness, no CVA or paraspinal tenderness Extermity/Skin: no c/c/e, no obvious rash MSK: FROM x 4 Neuro: CN 2-12 grossly intact, no new focal deficits Psych: calm - Constitutional Vitals: Temp Pulse Resp BP Pulse Ox 98.0 F 58 L 18 107/68 97 04/18/19 11:58 04/18/19 13:54 04/18/19 13:54 04/18/19 11:58 04/18/19 11:58 Plan Activity: up only with assistance, fall precautions, other (no strenous activity) Diet: other (mechanical soft diet, ground meats with regular liquids.) Follow up with: LEONILA MICHAEL MD [Primary Care Provider] - 3-5 Days Prescriptions: cefUROXime [Ceftin] 2 tab PO BID #8 tablet
[2019-04-18] MEDS: FLOMAX PO SCH (22:45)
[2019-04-18] MEDS: HALDOL IM PRN (23:24)
[2019-04-19] MEDS ORDERED: ATIVAN IV NR (01:31)
[2019-04-19] MEDS ORDERED: VITAMIN D2 PO SCH (08:00)
[2019-04-19 08:31] VITALS: BP 145/79
[2019-04-19] MEDS: DUONEB *Not for PRN Use IH SCH (08:39)
[2019-04-19] MEDS ORDERED: ROCEPHIN/NS 1 GM/50 ML 1 GM/50 ML BAG IV SCH (10:00)
[2019-04-19] MEDS: HumuLIN R SUB-Q SCH ×2 (11:15→13:07)
[2019-04-19] MEDS: FEOSOL PO SCH (11:21)
[2019-04-19] MEDS: BABY ASPIRIN PO SCH (11:23)
[2019-04-19] MEDS: HEPARIN SUB-Q SCH (11:23)
[2019-04-19] MEDS: PROTONIX PO SCH (11:23)
[2019-04-19] MEDS: SENOKOT PO SCH (11:24)
[2019-04-19] MEDS: HALDOL IM PRN (12:44)
--- NOTE | 2019-04-19 12:55 | Progress Note ---
Subjective - Reason for Consult Consult date: 04/19/19 Reason for consult: Psychiatry Follow-up - Chief Complaint Chief complaint: "I don't know" 64 y.o. white male who presented to the ER for persistent cough over several days. Psychiatry was consulted to see the patient for medication mgmt. Today the patient was calm, but confused during the assessment. He still could not answer questions logically. Per the staff, there was some type of behavioral d isturbances overnight. No gestures of SI/HI's. Mental Status Exam - Vital signs Last Vital Signs Temp 97.4 F L 04/19/19 07:59 Pulse 79 04/19/19 08:20 Resp 18 04/19/19 08:20 BP 145/79 04/19/19 07:59 Pulse Ox 91 04/19/19 10:00 - Exam Narrative exam: Unable to complete the MSE because of the patient's condition. Assessment and Plan Impression: Unspecified Neuro Cog DO. Today the patient was confused during the assessment. the patient was in restraints. DDx: Delirium, Dementia Medical: Acute Encephalopathy, LLL PNA Recommendation/Plan: Follow up with the patient in 24 hours. Continue Haldol 4 mg IM Q6hrs PRN and start Melotonin 5 mg PO HS for sleep. Recommend Delirium precautions below: 1. Frequently reorient patient and involve him/her in their care (simple explanations of procedures, tests, medications). 2. Lights on and shades open during daytime hours. 3. Write date and goals of care in a visible place. 4. Try to avoid unnecessary interruptions to sleep during nighttime hours. 5. Obtain glasses, hearing aids from home if patient uses these at baseline. 6. Avoid medications that may exacerbate delirium (especially narcotics, benzodiazepines, barbiturates, ambien, lunesta, and medications with excessive anticholinergic properties). Dispo: The patient is a resident at a SNF. Will staff with Dr. Nhan Hamptno.
[2019-04-19] MEDS ORDERED: MELATONIN PO SCH (22:00)
== END 2019-04-19 12:30 | DRG 682 ==
LOC: ED 07:39 → 2B-ACE 10:09 → 4A 04-15 12:35
PROVIDERS: ADMIT Internal Medicine; ATTEND Internal Medicine
DX: N17.0 Acute kidney failure with tubular necrosis (principal); J18.1 Lobar pneumonia, unspecified organism; G93.41 Metabolic encephalopathy; E87.0 Hyperosmolality and hypernatremia; J90 Pleural effusion, not elsewhere classified; F05 Delirium due to known physiological condition; I10 Essential (primary) hypertension; E86.1 Hypovolemia; F32.9 Major depressive disorder, single episode, unspecified; F25.9 Schizoaffective disorder, unspecified; E86.0 Dehydration; R13.10 Dysphagia, unspecified; R00.1 Bradycardia, unspecified; I27.20 Pulmonary hypertension, unspecified; F43.10 Post-traumatic stress disorder, unspecified; E11.9 Type 2 diabetes mellitus without complications; K21.9 Gastro-esophageal reflux disease without esophagitis; X58.XXXA Exposure to other specified factors, initial encounter; Z99.81 Dependence on supplemental oxygen; Z87.442 Personal history of urinary calculi; Z79.82 Long term (current) use of aspirin; I25.2 Old myocardial infarction; Y93.89 Activity, other specified; Y92.89 Other specified places as the place of occurrence of the external cause; Y99.8 Other external cause status
CPT/HCPCS: 36415; 71045; 74230; 80048; 80053; 81001; 82140; 82962; 84439; 84443; 85025; 85027; 87040; 87116; 93005; 93010; 93306; 94640; 94644; 94760; 96365; 96366; G0378; A9270-GY; J0456; J0696; J1630; J1644; J1815; J2060; J7030; J7040; J7050

== ENCOUNTER 2021-01-25 09:50 | Emergency (ER) | payer MEDICARE, OTHER ==
[2021-01-25 18:30] VITALS: BP 121/68
== END 2021-01-25 18:37 | disposition other institution (70) ==
LOC: ED 09:50
DX: J96.00 Acute respiratory failure, unspecified whether with hypoxia or hypercapnia (principal); J86.9 Pyothorax without fistula; Z79.82 Long term (current) use of aspirin; Z79.899 Other long term (current) drug therapy
CPT/HCPCS: 32554; 36415; 71045; 71250; 80048; 80076; 81001; 82140; 82550; 82553; 82803; 82805; 82947; 83605; 83735; 83880; 84160; 85025; 85730; 86850; 86900; 86901; 87040; 87116; 89051; 93005; 96365; 96367; 99291; J0692; J7040; 87076; J2250; J3370

== ENCOUNTER 2021-03-03 18:56 | Emergency (ER) | payer MEDICARE, OTHER ==
[2021-03-03] MEDS ORDERED: HALOPERIDOL LACTATE 5 MG/1 ML INJ ONE (22:19)
[2021-03-03] MEDS ORDERED: HALOPERIDOL LACTATE 5 MG/1 ML INJ IM ONE (22:26)
--- NOTE | 2021-03-03 22:31 | Cat Scan Report ---
CT HEAD WITHOUT CONTRAST INDICATION / CLINICAL INFORMATION: Status-Post fall with head laceration, Altered Mental Status. TECHNIQUE: All CT scans at this location are performed using CT dose reduction for ALARA by means of automated e xposure control. COMPARISON: CT head dated 10/18/2017. FINDINGS: HEMORRHAGE: None. EXTRA-AXIAL SPACES: Normal in size and morphology for the patient's age. VENTRICULAR SYSTEM: Normal in size and morphology for the patient's age. CEREBRAL PARENCHYMA: Chronic microangiopathic disease. No acute territorial infarct. MIDLINE SHIFT OR HERNIATION: None. CEREBELLUM / BRAINSTEM: No significant abnormality. ORBITS: Normal as visualized. SOFT TISSUES of HEAD: Suspected right supraorbital soft tissue defect with subcutaneous gas. 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 PARANASAL SINUSES / MASTOID AIR CELLS: Normal as visualized. ADDITIONAL FINDINGS: None. IMPRESSION: 1. No acute intracranial abnormality. 2. Right supraorbital soft tissue defect with subcutaneous gas. 3. 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 Signer Name: Angel Carey MD Signed: 03/03/2021 10:27 PM Workstation Name: [id number]
--- NOTE | 2021-03-03 22:35 | Cat Scan Report ---
CT CERVICAL SPINE WITHOUT CONTRAST INDICATION / CLINICAL INFORMATION: Status-Post fall with trauma. TECHNIQUE: Axial CT images were obtained through the cervical spine. Sagittal and coronal reformatted images wer e produced. All CT scans at this location are performed using CT dose reduction for ALARA by means of automated exposure control. COMPARISON: None available. FINDINGS: VERTEBRAE: No significant abnormality. ALIGNMENT: No significant abnormality. DISC SPACES: Moderate disc space height loss at C5-6 and C6-7 FACET JOINTS: Moderate multilevel degenerative spondylosis. CRANIOCERVICAL JUNCTION:No significant abnormality. SPINAL CANAL: No significant abnormality. PARASPINAL SOFT TISSUES: No significant abnormality. ADDITIONAL FINDINGS: None. LUNG APICES: Linear scarring in the left lung apex. IMPRESSION: 1. No acute abnormality. 2. Moderate multilevel degenerative spondylosis. Signer Name: Angel Carey MD Signed: 03/03/2021 10:30 PM Workstation Name: [id number]
[2021-03-03] MEDS ORDERED: LIDOCAINE 1%/EPINEPHRINE 1:100,000 VIAL (20 ML) INFILTRATI NR (22:45)
--- NOTE | 2021-03-03 23:00 | XRay Report ---
CHEST 1 VIEW, 03/03/2021 1014 PM CLINICAL INFORMATION/INDICATION: Trauma. Fall. COMPARISON: Chest radiograph, 01/25/2021 FINDINGS: SUPPORT DEVICES: None. HEART: The cardiac silhouette is normal in size. LUNGS/PLEURA: No focal airspace consolidation or significant pleural effusion is visualized. ADDITIONAL FINDINGS: No additional acute findings. No displaced rib fractures are identified. IMPRESSION: 1. No evidence of acute cardiopulmonary process. Signer Name: Kathe Livingston MD Signed: 03/03/2021 10:56 PM Workstation Name: [id number]
--- NOTE | 2021-03-03 23:05 | Emergency Department Report ---
ED Fall HPI - General Stated Complaint: LACERATION/FRONTAL Time Seen by Provider: 03/03/21 21:14 Source: EMS - History of Present Illness Initial Comments: 66-year-old male, history of schizoaffective disorder, major depression, CAD, respiratory failure, pericardial effusion, pyothorax, diabetes, PTSD, presents to ED following fall at [facility]. Per EMS, staff witnessed patient fall from standing. No LOC. Patient reportedly got up and continued walking. Staff saw that patient sustained a small laceration just above the right eyebrow. Patient sent here for evaluation. Per EMS, [facility] states that patient is at his baseline currently. MD Complaint: fall -: This evening Fall From: standing Fall Witnessed: yes, by living facility [facility] Place Fall Occurred: [facility] Loss of Consciousness: none Prolonged Down Time?: no Location: head Severity: mild - Related Data Home Medications Medication Instructions Recorded Confirmed Last Taken Aspirin [Aspirin BABY CHEW TAB] 81 mg PO QDAY 04/14/19 04/14/19 Unknown AtorvaSTATin [Lipitor] 40 mg PO QHS 04/14/19 04/14/19 Unknown Benztropine Mesylate 1 mg PO BID 04/14/19 04/14/19 Unknown Docusate Sodium [Colace CAP] 100 mg PO BID PRN 04/14/19 04/14/19 Unknown Ergocalciferol [Vitamin D2] 1 cap PO QWEEK 04/14/19 04/14/19 Unknown Ferrous Sulfate [Iron 325 MG] 325 mg PO TID 04/14/19 04/14/19 Unknown Ketoconazole 2% [Nizoral] 1 applicatio TP QDAY 04/14/19 04/14/19 Unknown Ketoconazole [Ketoconazole shampoo] 120 ml TP QDAY 04/14/19 04/14/19 Unknown Lurasidone HCl [Latuda] 40 mg PO QHS 04/14/19 04/14/19 Unknown Nystatin Cream [Mycostatin Cream] 1 applic TP BID 04/14/19 04/14/19 Unknown Pantoprazole [Protonix TAB] 40 mg PO QDAY 04/14/19 04/14/19 Unknown Sennosides Tab [Senokot] 17.2 mg PO QHS 04/14/19 04/14/19 Unknown Tamsulosin [Flomax] 0.4 mg PO QHS 04/14/19 04/14/19 Unknown Ziprasidone [Geodon] 60 mg PO BID 04/14/19 04/14/19 Unknown Previous Rx's Medication Instructions Recorded Last Taken Type Acetaminophen [Acetaminophen TAB] 2 tab PO Q6H PRN #15 tablet 04/18/19 Unknown Rx Insulin Regular, Human [HumuLIN R] 1 dose SUB-Q ACHS PRN #2 vial 04/18/19 Unknown Rx Ipratropium/Albuterol Sulfate 1 ampul IH TIDRT PRN #30 ampul.neb 04/18/19 Unknown Rx [DUONEB *Not for PRN Use*] cefUROXime [Ceftin] 2 tab PO BID #8 tablet 04/18/19 Unknown Rx Allergies Allergy/AdvReac Type Severity Reaction Status Date / Time No Known Allergies Allergy Verified 10/11/18 14:24 ED Review of Systems ROS: Stated complaint: LACERATION/FRONTAL Other details as noted in HPI Comment: Unobtainable due to pts medical conditions ED Past Medical Hx - Past Medical History Hx Hypertension: Yes Hx Heart Attack/AMI: Yes Hx Diabetes: Yes Hx GERD: Yes Hx Kidney Stones: Yes Hx Psychiatric Treatment: Yes (history of major depressive disorder, PTSD, schizoaffective d.o.) Additional medical history: Psychosis unspecified, PVD, anemia - Surgical History Additional Surgical History: Hemorrhoids sx - Social History Smoking Status: Unknown if ever smoked - Medications Home Medications: Home Medications Medication Instructions Recorded Confirmed Last Taken Type Aspirin [Aspirin BABY CHEW TAB] 81 mg PO QDAY 04/14/19 04/14/19 Unknown History AtorvaSTATin [Lipitor] 40 mg PO QHS 04/14/19 04/14/19 Unknown History Benztropine Mesylate 1 mg PO BID 04/14/19 04/14/19 Unknown History Docusate Sodium [Colace CAP] 100 mg PO BID PRN 04/14/19 04/14/19 Unknown History Ergocalciferol [Vitamin D2] 1 cap PO QWEEK 04/14/19 04/14/19 Unknown History Ferrous Sulfate [Iron 325 MG] 325 mg PO TID 04/14/19 04/14/19 Unknown History Ketoconazole 2% [Nizoral] 1 applicatio TP QDAY 04/14/19 04/14/19 Unknown History Ketoconazole [Ketoconazole shampoo] 120 ml TP QDAY 04/14/19 04/14/19 Unknown History Lurasidone HCl [Latuda] 40 mg PO QHS 04/14/19 04/14/19 Unknown History Nystatin Cream [Mycostatin Cream] 1 applic TP BID 04/14/19 04/14/19 Unknown History Pantoprazole [Protonix TAB] 40 mg PO QDAY 04/14/19 04/14/19 Unknown History Sennosides Tab [Senokot] 17.2 mg PO QHS 04/14/19 04/14/19 Unknown History Tamsulosin [Flomax] 0.4 mg PO QHS 04/14/19 04/14/19 Unknown History Ziprasidone [Geodon] 60 mg PO BID 04/14/19 04/14/19 Unknown History Acetaminophen [Acetaminophen TAB] 2 tab PO Q6H PRN #15 tablet 04/18/19 Unknown Rx Insulin Regular, Human [HumuLIN R] 1 dose SUB-Q ACHS PRN #2 vial 04/18/19 Unknown Rx Ipratropium/Albuterol Sulfate 1 ampul IH TIDRT PRN #30 ampul.neb 04/18/19 Unknown Rx [DUONEB *Not for PRN Use*] cefUROXime [Ceftin] 2 tab PO BID #8 tablet 04/18/19 Unknown Rx ED Physical Exam - General General appearance: alert, in no apparent distress - Head Head exam: Present: normocephalic, other (3 cm laceration just above and lateral to the right eyebrow) - Eye Eye exam: Present: normal appearance, PERRL, EOMI - ENT ENT exam: Present: mucous membranes moist - Neck Neck exam: Present: normal inspection - Respiratory Respiratory exam: Present: normal lung sounds bilaterally. Absent: respiratory distress - Cardiovascular Cardiovascular Exam: Present: regular rate, normal rhythm - GI/Abdominal GI/Abdominal exam: Present: soft. Absent: distended, tenderness - Extremities Exam Extremities exam: Present: normal inspection - Neurological Exam Neurological exam: Present: alert, other (Patient moving all extremities; occasionally yells out) - Psychiatric Psychiatric exam: Present: agitated - Skin Skin exam: Present: warm, dry, intact, normal color ED Course Vital Signs 03/03/21 21:20 Temperature 98.0 F Pulse Rate 77 Respiratory 18 Rate Blood Pressure 128/79 [Left] O2 Sat by Pulse 95 Oximetry - Laceration /Wound Repair Face Wound Location: face Wound Length (cm): 3 Wound's Depth, Shape: superficial Wound Explored: clean Irrigated w/ Saline (ccs): 50 Anesthesia: Lidocaine w/ Epi Volume Anesthetic (ccs): 5 Number of Sutures: 8 (loree) Sterile Dressing Applied?: Yes ED Medical Decision Making - Radiology Data Radiology results: report reviewed, image reviewed - Medical Decision Making 66-year-old male, history of schizoaffective disorder, major depression, CAD, respiratory failure, pericardial effusion, pyothorax, diabetes, PTSD, presents [facility] ED following fall at [facility]. Patient was slightly agitated. Haldol 5 mg IM given so that we could irrigate wound and perform laceration repair. Decision was made to use loree as it was easier for the patient to tolerate. Upon initial presentation, O2 sats were low, however I observe patient off of O2 and he is satting 94% on room air. Chest x-ray is clear. CT head and C-spine both negative as well. [facility] be [facility] back to [facility]. Critical care attestation.: If time is entered above; I have spent that time in minutes in the direct care of this critically ill patient, excluding procedure time. ED Disposition Clinical Impression: Fall, Acute head injury, Laceration of face Disposition: DC-01 TO HOME OR SELFCARE Is pt being admited?: No Condition: Stable Instructions: Laceration Care, Adult, [id number], Sutures, [place], or Adhesive Wound Closure Additional Instructions: [place] need to be removed in 5-7 days. Referrals: PRIMARY CARE, [Referring] - 3-5 Days
[2021-03-04 01:18] VITALS: BP 144/79
== END 2021-03-04 01:10 | disposition home or self-care (01) ==
LOC: ED 18:56
DX: S01.111A Laceration without foreign body of right eyelid and periocular area, initial encounter (principal); S09.90XA Unspecified injury of head, initial encounter; I10 Essential (primary) hypertension; I25.2 Old myocardial infarction; E11.9 Type 2 diabetes mellitus without complications; K21.9 Gastro-esophageal reflux disease without esophagitis; Z98.890 Other specified postprocedural states; Z79.4 Long term (current) use of insulin; Z79.899 Other long term (current) drug therapy; W19.XXXA Unspecified fall, initial encounter; Y93.89 Activity, other specified; Y92.89 Other specified places as the place of occurrence of the external cause; Y99.8 Other external cause status
CPT/HCPCS: 12013; 70450; 71045; 72125; 82962; 96372; 99284; J1630